=== PATIENT | female | born 1970 | race African-American/Black ===

== ENCOUNTER 2016-11-02 22:13 | Emergency (ER) | payer BC ==
[2016-11-02] MEDS ORDERED: IPRATROPIUM/ALBUTEROL 0.5-2.5 MG/3 ML AMPUL NEB ONE (23:36)
--- NOTE | 2016-11-02 23:45 | ER Document Report ---
ED Medical Screen (RME) - General Chief Complaint: Breathing Difficulty Stated Complaint: DIFFICULTY BREATHING Mode of Arrival: Ambulatory Information source: Patient Notes: Patient is a 46 year old -L[place] female with a history of asthma who presents to the ER today for 2 weeks of increased shortness of breath with wheezing, chills and runny nose. Patient states her albuterol treatments at home and no longer helping. She denies any fever that she knows of. She denies any chest pain. TRAVEL OUTSIDE OF THE [place] IN LAST 30 DAYS: No - Related Data Allergies/Adverse Reactions: No Known Allergies Allergy (Verified 07/28/16 08:02) Past Medical History - General Information source: Patient - Social History Drug Abuse: None Pulmonary Medical History: Reports: Hx Asthma, Hx COPD Renal/ Medical History: Denies: Hx Peritoneal Dialysis Psychiatric Medical History: Denies: Hx Depression Past Surgical History: Reports: Hx Gynecologic Surgery - ablation, Hx Tubal Ligation - Immunizations Hx Diphtheria, Pertussis, Tetanus Vaccination: Yes - unknown Review of Systems - Review of Systems Constitutional: See HPI EENT: See HPI Respiratory: See HPI Physical Exam - Vital signs Vitals: Temp Pulse Resp BP 98.5 F 100 17 110/66 11/02/16 22:40 11/02/16 22:40 11/02/16 22:40 11/02/16 22:40 - Notes Notes: PHYSICAL EXAMINATION: GENERAL: Well-appearing and in no acute distress. LUNGS: Mild expiratory wheezes and lower lung díaz, no rales or rhonchi. Course - Vital Signs Vital signs: Temp Pulse Resp BP Pulse Ox 98.5 F 100 17 110/66 11/02/16 22:40 11/02/16 22:40 11/02/16 22:40 11/02/16 22:40
[2016-11-03] MEDS ORDERED: ALBUTEROL SULFATE 0.083% NEB 2.5 MG/3 ML AMPUL NEB ONE (00:25)
[2016-11-03] MEDS ORDERED: CEFTRIAXONE INJ 1000 MG VIAL IM ONE (00:50)
[2016-11-03] MEDS ORDERED: LIDOCAINE 1% INJ-PF (10 MG/ML) 30 ML SDV INJ ONE (00:50)
[2016-11-03] MEDS ORDERED: AZITHROMYCIN 250 MG TABLET PO ONE (00:50)
[2016-11-03] MEDS ORDERED: GUAIFENESIN/D-METHORPHAN (200-20 MG) SYRUP 10 ML PO ONE (00:50)
[2016-11-03] MEDS ORDERED: PREDNISONE 20 MG TABLET PO ONE (00:50)
--- NOTE | 2016-11-03 00:55 | ER Document Report ---
ED Respiratory Problem - General Chief Complaint: Breathing Difficulty Stated Complaint: DIFFICULTY BREATHING Mode of Arrival: Ambulatory Information source: Patient Notes: Patient is a 46 year old -[place] Islander female with a history of asthma who presents to the ER today for 2 weeks of increased shortness of breath with cough , wheezing, chills and runny nose. Patient states her albuterol treatments at home and no longer helping. She denies any fever that she knows of. She denies any chest pain. TRAVEL OUTSIDE OF THE [place] IN LAST 30 DAYS: No - Related Data Allergies/Adverse Reactions: No Known Allergies Allergy (Verified 07/28/16 08:02) Past Medical History - General Information source: Patient - Social History Smoking Status: Former Smoker Drug Abuse: None Family History: Reviewed & Not Pertinent Patient has suicidal ideation: No Patient has homicidal ideation: No Pulmonary Medical History: Reports: Hx Asthma, Hx COPD Renal/ Medical History: Denies: Hx Peritoneal Dialysis Psychiatric Medical History: Denies: Hx Depression Past Surgical History: Reports: Hx Gynecologic Surgery - ablation, Hx Tubal Ligation - Immunizations Hx Diphtheria, Pertussis, Tetanus Vaccination: Yes - unknown Review of Systems - Review of Systems Constitutional: See HPI EENT: See HPI Cardiovascular: No symptoms reported Respiratory: See HPI Gastrointestinal: No symptoms reported Genitourinary: No symptoms reported Female Genitourinary: No symptoms reported Musculoskeletal: No symptoms reported Skin: No symptoms reported Hematologic/Lymphatic: No symptoms reported Neurological/Psychological: No symptoms reported Physical Exam - Vital signs Vitals: Temp Pulse Resp BP 98.5 F 100 17 110/66 11/02/16 22:40 11/02/16 22:40 11/02/16 22:40 11/02/16 22:40 - Notes Notes: PHYSICAL EXAMINATION: GENERAL: Mildly ill-appearing, but in no acute distress. HEAD: Atraumatic, normocephalic. EYES: Pupils equal round and reactive to light, extraocular movements intact, sclera anicteric, conjunctiva are normal. ENT: ear canals without erythema or foreign body, TMs pearly carson with good bony landmarks, nares with mucoid discharge, oropharynx clear without exudates. Moist mucous membranes. NECK: Normal range of motion, supple without lymphadenopathy LUNGS: Mild expiratory wheezes throughout, rhonchi noted to the left lower lung field, no rales HEART: Regular rate and rhythm without murmurs ABDOMEN: Soft, no tenderness. No guarding, no rebound EXTREMITIES: Normal range of motion, no pitting edema. No cyanosis. NEUROLOGICAL: Cranial nerves grossly intact. Normal sensory/motor exams. PSYCH: Normal mood, normal affect. SKIN: Warm, Dry, normal turgor, no rashes or lesions noted Course - Re-evaluation Re-evalutation: 11/03/16 00:52 Patient states that she feels better after breathing treatment here. Chest x- ray does reveal left basilar airspace disease with small effusion. Patient requested an antibiotic injection, so here she was given azithromycin orally and Rocephin IM, incentive spirometer to use at home every hour while awake, prednisone. Patient to follow-up with her primary care provider and agrees with this plan. - Vital Signs Vital signs: Temp Pulse Resp BP Pulse Ox 98.5 F 100 17 110/66 11/02/16 22:40 11/02/16 22:40 11/02/16 22:40 11/02/16 22:40 Discharge - Discharge Clinical Impression: Pneumonia involving left lung Qualifiers: Pneumonia type: due to unspecified organism Lung location: unspecified part of lung Qualified Code(s): J18.9 - Pneumonia, unspecified organism Asthma Qualifiers: Asthma severity: unspecified severity Asthma complication type: with acute exacerbation Qualified Code(s): J45.901 - Unspecified asthma with (acute) exacerbation Condition: Stable Disposition: HOME, SELF-CARE Instructions: Pneumonia ([facility]) Additional Instructions: Please use the incentive spirometer every hour while you're awake. This will help with the pleural effusion. Please take your medications as prescribed. Return immediately for any new or worsening symptoms. Follow up with primary care provider, call tomorrow to make followup appointment. Prescriptions: Hydrocodone Bit/Homatropine [Hycodan Syrup 5-1.5 mg/5 ml Ud Cup] 5 ml PO Q4HP PRN #120 ml PRN Reason: Azithromycin [Zithromax 250 mg Tablet] 250 mg PO ASDIR PRN #6 tablet PRN Reason: Prednisone 60 mg PO DAILY #21 tablet
[2016-11-03 02:26] VITALS: BP 97/57
== END 2016-11-03 01:24 | disposition home or self-care (01) ==
LOC: ER 22:13
DX: J18.9 Pneumonia, unspecified organism (principal); J45.901 Unspecified asthma with (acute) exacerbation; R06.02 Shortness of breath; R05 Cough; R06.2 Wheezing; R09.89 Other specified symptoms and signs involving the circulatory and respiratory systems; Z87.891 Personal history of nicotine dependence
CPT/HCPCS: 94640; 99284; 96372; 71020; J3490 ×2; J7512; J0696; J7620

== ENCOUNTER 2017-05-28 18:15 | Emergency (ER) | payer SELFPAY ==
[2017-05-28] MEDS ORDERED: IPRATROPIUM/ALBUTEROL 0.5-2.5 MG/3 ML AMPUL NEB ONE (18:54)
[2017-05-28] MEDS ORDERED: MAGNESIUM SULFATE PF/INJ 40 MEQ/10 ML SDV IV ONE (18:57)
--- NOTE | 2017-05-28 19:02 | ER Document Report ---
ED Medical Screen (RME) - General Chief Complaint: Breathing Difficulty Stated Complaint: DIFFICULTY BREATHING Time Seen by Provider: 05/28/17 18:54 Mode of Arrival: Ambulatory Information source: Patient TRAVEL OUTSIDE OF THE [place] IN LAST 30 DAYS: No - HPI Onset: This morning Onset/Duration: Gradual Quality of pain: No pain Associated Symptoms: Cough (productive), Shortness of breath, Other - WHEEZING Exacerbated by: Denies Relieved by: Denies - ALBUTEROL NEB AT HOME NO HELP Similar symptoms previously: Yes - NOT RECENT Recently seen / treated by doctor: No - Related Data Smoking: Non-smoker Frequency of alcohol use: Rare Drug Abuse: None Allergies/Adverse Reactions: No Known Allergies Allergy (Verified 05/28/17 18:49) Past Medical History - General Information source: Patient - Social History Cigarette use (# per day): No Chew tobacco use (# tins/day): No Frequency of alcohol use: None Drug Abuse: None Lives with: Family Family history: Reviewed & Not Pertinent - Past Medical History Cardiac Medical History: Reports: None Pulmonary Medical History: Reports: Hx Asthma, Hx COPD EENT Medical History: Reports: None Neurological Medical History: Reports: None Endocrine Medical History: Reports: None Renal/ Medical History: Reports: None. Denies: Hx Peritoneal Dialysis Malignancy Medical History: Reports: None GI Medical History: Reports: None Musculoskeltal Medical History: Reports None Psychiatric Medical History: Reports: None Denies: Hx Depression Past Surgical History: Reports: Hx Gynecologic Surgery - ablation, Hx Tubal Ligation - Immunizations Hx Diphtheria, Pertussis, Tetanus Vaccination: Yes - unknown Review of Systems - Review of Systems Constitutional: No symptoms reported EENT: No symptoms reported Cardiovascular: No symptoms reported Respiratory: See HPI Gastrointestinal: No symptoms reported Genitourinary: No symptoms reported Musculoskeletal: No symptoms reported Skin: No symptoms reported Neurological/Psychological: No symptoms reported Physical Exam - Vital signs Vitals: Temp Pulse Resp BP Pulse Ox 98.3 F 88 18 133/69 H 93 05/28/17 18:21 05/28/17 18:21 05/28/17 18:21 05/28/17 18:21 05/28/17 18:21 - General General appearance: Appears well, Alert In distress: None - HEENT Eyes: Normal Conjunctiva: Normal Ears: Normal Nasal: Normal Mouth/Lips: Normal Mucous membranes: Normal - Respiratory Respiratory status: No respiratory distress Breath sounds: Wheezing - MODERATE EXPIRATORY, ALL WARNER. No: Rales, Rhonchi, Stridor - Cardiovascular Rhythm: Regular Heart sounds: Normal auscultation Murmur: No - Abdominal Inspection: Normal Distension: No distension - Back Back: Normal - Extremities General upper extremity: Normal inspection General lower extremity: Normal inspection. No: Edema - Neurological Neuro grossly intact: Yes Cognition: Normal Orientation: AAOx4 - Psychological Associated symptoms: Normal affect, Normal mood - Skin Skin Temperature: Warm Skin Moisture: Dry Skin Color: Normal Skin Turgor: Elastic Course - Vital Signs Vital signs: Temp Pulse Resp BP Pulse Ox 98.3 F 88 18 133/69 H 93 05/28/17 18:21 05/28/17 18:21 05/28/17 18:21 05/28/17 18:21 05/28/17 18:21
[2017-05-28 19:28] LABS: ABSOLUTE BASOPHILS # (AUTO) 0.1 10^3/uL (0.0-0.2); ABSOLUTE EOSINOPHILS # (AUTO) 0.4 10^3/uL (0.0-0.6); ABSOLUTE LYMPHOCYTES (AUTO) 1.7 10^3/uL (0.5-4.7); ABSOLUTE MONOCYTES (AUTO) 0.8 10^3/uL (0.1-1.4); ABSOLUTE NEUT (AUTO) 4.7 10^3/uL (1.7-8.2); EOSINOPHILS % (AUTO) 5.5 % (0-6); HEMATOCRIT 40.7 % (36.0-47.0); HGB HCT DIFFERENCE 1.3; LYMPHOCYTES % (AUTO) 22.1 % (13-45); MEAN CORPUSCULAR HEMOGLOBIN 30.8 pg (27.0-33.4); MEAN CORPUSCULAR HGB CONC 34.4 g/dL (32.0-36.0); MEAN CORPUSCULAR VOLUME 90 fl (80-97); MONOCYTES % (AUTO) 10.5 % (3-13); RED BLOOD COUNT 4.54 10^6/uL (3.72-5.28); RED CELL DISTRIBUTION WIDTH 13.2 % (11.5-14.0); SEGMENTED NEUTROPHILS % (AUTO) 60.9 % (42-78); WHITE BLOOD COUNT 7.8 10^3/uL (4.0-10.5)
[2017-05-28 19:44] LABS: ALANINE AMINOTRANSFERASE 26 U/L (9-52); ALBUMIN 4.2 g/dL (3.5-5.0); ALKALINE PHOSPHATASE 82 U/L (38-126); ANION GAP 6 (5-19); ASPARTATE AMINO TRANSFERASE 28 U/L (14-36); BILIRUBIN,DIRECT 0.4 mg/dL (0.0-0.4); BILIRUBIN,TOTAL 0.9 mg/dL (0.2-1.3); BLOOD UREA NITROGEN 11 mg/dL (7-20); CALCIUM 9.8 mg/dL (8.4-10.2); CARBON DIOXIDE 26 mmol/L (22-30); CHLORIDE 105 mmol/L (98-107); CREATININE RESULT 0.72 mg/dL (0.52-1.25); GLUCOSE 84 mg/dL (75-110); POTASSIUM 3.8 mmol/L (3.6-5.0); SODIUM 137.1 mmol/L (137-145); TOTAL PROTEIN 7.7 g/dL (6.3-8.2)
--- NOTE | 2017-05-28 20:02 | RADIOLOGY REPORT (SQ) ---
EXAM DESCRIPTION: CHEST PA/LAT COMPLETED DATE/TIME: 05/28/2017 7:45 pm REASON FOR STUDY: COUGH, WHEEZING COMPARISON: None. EXAM PARAMETERS: NUMBER OF VIEWS: two views TECHNIQUE: Digital Frontal and Lateral radiographic views of the chest acquired. RADIATION DOSE: NA LIMITATIONS: none FINDINGS: LUNGS AND PLEURA: Upper lobes are hyperlucent from obstructive disease. No acute infiltrates. No pleural effusion. No pneumothorax. MEDIASTINUM AND HILAR STRUCTURES: No masses or contour abnormalities. HEART AND VASCULAR STRUCTURES: Heart normal size. No evidence for failure. BONES: No acute findings. HARDWARE: None in the chest. OTHER: No other significant finding. IMPRESSION: Obstructive lung disease. TECHNICAL DOCUMENTATION: JOB ID: [id number] [employer]- All Rights Reserved
[2017-05-28] MEDS ORDERED: ALBUTEROL SULFATE 0.083% NEB 2.5 MG/3 ML AMPUL NEB ONE (20:09)
[2017-05-28] MEDS ORDERED: METHYLPREDNISOLONE INJ 125 MG/2 ML SDV IV ONE (20:10)
--- NOTE | 2017-05-28 20:10 | ER Document Report ---
ED General - General Chief Complaint: Breathing Difficulty Stated Complaint: DIFFICULTY BREATHING Time Seen by Provider: 05/28/17 18:54 Mode of Arrival: Ambulatory Notes: Patient is a 46-year-old female with a past medical history of asthma, prior hospitalizations but no prior intubations, still an active tobacco smoker who presents with several weeks of progressive worsening shortness of breath that became acutely worse today. Patient states she has been using her albuterol inhaler with moderate improvement of her symptoms. She notes that her seasonal allergy symptoms acutely worsen her episodes of shortness of breath. At time of presentation states that a DuoNeb treatment she received in triage has moderately improved her symptoms but she does complain of some ongoing mild dyspnea. Denies any associated chest pain, fever, vomiting or altered mental status. She has not seen her primary care doctor regarding today's concerns. She does not take anything for daily control medication. TRAVEL OUTSIDE OF THE [place] IN LAST 30 DAYS: No - Related Data Allergies/Adverse Reactions: No Known Allergies Allergy (Verified 05/28/17 18:49) Past Medical History - General Information source: Patient - Social History Smoking Status: Current Every Day Smoker Cigarette use (# per day): No Chew tobacco use (# tins/day): No Frequency of alcohol use: None Drug Abuse: None Lives with: Family Family History: Reviewed & Not Pertinent - Past Medical History Cardiac Medical History: Reports: None Pulmonary Medical History: Reports: Hx Asthma, Hx COPD EENT Medical History: Reports: None Neurological Medical History: Reports: None Endocrine Medical History: Reports: None Renal/ Medical History: Reports: None. Denies: Hx Peritoneal Dialysis Malignancy Medical History: Reports: None GI Medical History: Reports: None Musculoskeltal Medical History: Reports None Psychiatric Medical History: Reports: None Denies: Hx Depression Past Surgical History: Reports: Hx Gynecologic Surgery - ablation, Hx Tubal Ligation - Immunizations Hx Diphtheria, Pertussis, Tetanus Vaccination: Yes - unknown Review of Systems - Review of Systems Notes: Constitutional: Negative for fever. HENT: Negative for sore throat. Eyes: Negative for visual changes. Cardiovascular: Negative for chest pain. Respiratory: Positive for shortness of breath. Gastrointestinal: Negative for abdominal pain, vomiting or diarrhea. Genitourinary: Negative for dysuria. Musculoskeletal: Negative for back pain. Skin: Negative for rash. Neurological: Negative for headaches, weakness or numbness. 10 point ROS negative except as marked above and in HPI. Physical Exam - Vital signs Vitals: Temp Pulse Resp BP Pulse Ox 98.3 F 88 18 133/69 H 93 05/28/17 18:21 05/28/17 18:21 05/28/17 18:21 05/28/17 18:21 05/28/17 18:21 Interpretation: Normal Notes: PHYSICAL EXAMINATION: GENERAL: Well-appearing, well-nourished and in no acute distress. HEAD: Atraumatic, normocephalic. EYES: Pupils equal round and reactive to light, extraocular movements intact, sclera anicteric, conjunctiva are normal. ENT: nares patent, oropharynx clear without exudates. Moist mucous membranes. NECK: Normal range of motion, supple without lymphadenopathy LUNGS: Breath sounds clear to auscultation bilaterally and equal. Scattered wheezing in all lung díaz. HEART: Regular rate and rhythm without murmurs ABDOMEN: Soft, nontender, normoactive bowel sounds. No guarding, no rebound. No masses appreciated. EXTREMITIES: Normal range of motion, no pitting or edema. No cyanosis. NEUROLOGICAL: No focal neurological deficits. Moves all extremities spontaneously and on command. PSYCH: Normal mood, normal affect. SKIN: Warm, Dry, normal turgor, no rashes or lesions noted. Course - Re-evaluation Re-evalutation: 05/28/17 20:10 Patient presents with a mild exacerbation of their baseline asthma. Mild wheezing at time of presentation but vitals do not show significant hypoxemia or tachypnea. No retractions. Patient did clinically improve after receiving nebulizers here in the emergency department. Chest x-ray without evidence of an acute pneumonia. Patient able to ambulate without any respiratory distress. Based on patient's overall reassuring assessment, I believe they are stable for outpatient management with steroids. I do not suspect an acute alternative pathology at this time based on history and exam including acute pulmonary embolus, ACS, pneumothorax, or aortic dissection. At this time will discharge with return precautions and follow-up recommendations. Verbal discharge instructions given a the bedside and opportunity for questions given. Medication warnings reviewed. Patient is in agreement with this plan and has verbalized understanding of return precautions and the need for primary care follow-up in the next 24-72 hours. - Vital Signs Vital signs: Temp Pulse Resp BP Pulse Ox 98.3 F 88 22 H 123/68 93 05/28/17 18:21 05/28/17 18:21 05/28/17 22:27 05/28/17 22:27 05/28/17 22:27 - Laboratory Result Diagrams: 05/28/17 19:07 05/28/17 19:07 - Diagnostic Test Radiology reviewed: Image reviewed, Reports reviewed Radiology results interpreted by me: 05/29/17 02:33 Chest x-ray: No acute infiltrate or pneumothorax Discharge - Discharge Clinical Impression: Asthma exacerbation Condition: Good Disposition: HOME, SELF-CARE Additional Instructions: You were seen for an asthma exacerbation. Your symptoms improved with treatment here in the emergency department. However, it is very important that you return to the emergency department immediately if you began to have worsening difficulty breathing that does not respond to your normal home nebulizers. You are also being sent home on a five-day course of steroids that you should start taking tomorrow. Please also follow closely with your primary care physician. you should also return to emergency department if you develop fever greater than 101, persistent cough, persistent vomiting, pass out, or any other symptoms that are concerning to you. Prescriptions: Albuterol Sulfate [Albuterol Sulfate 5mg/1 mL] 5 mg NEB Q4 PRN #50 ml PRN Reason: Prednisone [Deltasone 20 mg Tablet] 3 tab PO DAILY 5 Days tablet Forms: Return to Work
[2017-05-28] MEDS: MAGNESIUM SULFATE/D5W 1 GM/100 ML RTUPB IV SCH ×2 (21:01→22:12)
[2017-05-28] MEDS ORDERED: ALBUTEROL SULFATE HFA (90 MCG/PUFF) 8 GM MDI (1 MDI/ER DISP) IH PRN (21:43)
[2017-05-28 22:39] VITALS: BP 123/68
--- NOTE | 2017-05-29 07:55 | EKG REPORT ---
SEVERITY:- NORMAL ECG - SINUS RHYTHM : Confirmed by: Jesús Mcmillan MD 29-May-2017 07:54:34
== END 2017-05-28 22:39 | disposition home or self-care (01) ==
LOC: ER 18:15
DX: J45.901 Unspecified asthma with (acute) exacerbation (principal); F17.200 Nicotine dependence, unspecified, uncomplicated
CPT/HCPCS: 93005; 94640 ×2; 99285; 96375; 96365; 36415; 85025; 80053; 71020; 93010; J2930; J3475; J3490; J7620

== ENCOUNTER 2017-06-12 22:40 | Emergency (ER) | payer SELFPAY ==
--- NOTE | 2017-06-12 23:53 | ER Document Report ---
ED Extremity Problem, Lower - General Chief Complaint: Ankle Injury Stated Complaint: ANKLE INJURY Time Seen by Provider: 06/12/17 23:47 Mode of Arrival: Ambulatory Information source: Patient TRAVEL OUTSIDE OF THE [place] IN LAST 30 DAYS: No - HPI Patient complains to provider of: Pain, Swelling Location: Foot - LEFT Occurred: This afternoon Where: Work Onset/Duration: Sudden Quality of pain: Sharp Severity: Moderate Context: Other - WAS SITTING DOWN, GOT UP ON FEET QUICKLY, HEARD A "POP" AND FELT IMMEDIATE PAIN Recent injury: Yes Associated symptoms: [place] a pop Exacerbated by: Walking, Other - WEIGHT BEARING Relieved by: Elevation - Related Data Allergies/Adverse Reactions: No Known Allergies Allergy (Verified 05/28/17 18:49) Past Medical History - General Information source: Patient - Social History Smoking Status: Unknown if Ever Smoked Frequency of alcohol use: Occasional Drug Abuse: None Lives with: Spouse/Significant other Family History: Reviewed & Not Pertinent Patient has suicidal ideation: No Patient has homicidal ideation: No - Past Medical History Cardiac Medical History: Reports: None Pulmonary Medical History: Reports: Hx Asthma, Hx COPD Neurological Medical History: Reports: None Endocrine Medical History: Reports: None Renal/ Medical History: Reports: None. Denies: Hx Peritoneal Dialysis Malignancy Medical History: Reports: None GI Medical History: Reports: None Musculoskeltal Medical History: Reports None Psychiatric Medical History: Reports: None Denies: Hx Depression Past Surgical History: Reports: Hx Gynecologic Surgery - ablation, Hx Tubal Ligation - Immunizations Hx Diphtheria, Pertussis, Tetanus Vaccination: Yes - unknown Review of Systems - Review of Systems Constitutional: No symptoms reported EENT: No symptoms reported Cardiovascular: No symptoms reported Respiratory: No symptoms reported Gastrointestinal: No symptoms reported Musculoskeletal: See HPI Skin: No symptoms reported Neurological/Psychological: No symptoms reported Physical Exam - Vital signs Vitals: Temp Pulse Resp BP Pulse Ox 98.2 F 96 16 130/74 H 94 06/12/17 23:14 06/12/17 23:14 06/12/17 23:14 06/12/17 23:14 06/12/17 23:14 Interpretation: Normal - General General appearance: Appears well, Alert In distress: None - HEENT Head: Normocephalic Eyes: Normal Conjunctiva: Normal Ears: Normal Nasal: Normal Mouth/Lips: Normal Mucous membranes: Normal - Respiratory Respiratory status: No respiratory distress - Cardiovascular Rhythm: Regular - Extremities General upper extremity: Normal inspection General lower extremity: No: Normal inspection - L. FOOT (SEE BELOW) Foot: Tender - OVER ANT. TALO-FIB LIGAMENT, Edema - OVER ANT. TALO-FIB. LIGAMENT - Neurological Neuro grossly intact: Yes - Psychological Associated symptoms: Normal affect, Normal mood - Skin Skin Temperature: Warm Skin Moisture: Dry Skin Color: Normal Skin Turgor: Elastic Course - Vital Signs Vital signs: Temp Pulse Resp BP Pulse Ox 98.2 F 96 16 130/74 H 94 06/12/17 23:14 06/12/17 23:14 06/12/17 23:14 06/12/17 23:14 06/12/17 23:14 Discharge - Discharge Clinical Impression: Left ankle sprain Qualifiers: Encounter type: initial encounter Involved ligament of ankle: tibiofibular ligament Qualified Code(s): S93.432A - Sprain of tibiofibular ligament of left ankle, initial encounter Condition: Stable Disposition: HOME, SELF-CARE Instructions: Use of Crutches ([facility]), Ice & Elevation ([facility]), Sprained Ankle ([facility] ), Soft Ankle Splint ([facility]) Additional Instructions: KEEP SPLINT ON EXCEPT WHEN BATHING. AVOID WEIGHT BEARING FOR NEXT 48 HOURS, THEN BEGIN WEIGHT BEARING TOLERATED. YOU MAY TAKE TYLENOL OR IBUPROFEN IF NEEDED FOR PAIN. FOLLOW UP WITH ORTHOPEDIC SURGEON OR KICK PRESS OPERATOR IF NOT ABLE TO BEAR WEIGHT TUESDAY, Jun.14. RETURN TO E.R. IF PROBLEMS. Referrals: ABDIFATAH CANAS MD [ACTIVE STAFF] - Follow up as needed HÉCTOR MURPHY DPM [ACTIVE STAFF] - Follow up as needed
--- NOTE | 2017-06-13 00:48 | RADIOLOGY REPORT (SQ) ---
EXAM DESCRIPTION: ANKLE LEFT COMPLETE COMPLETED DATE/TIME: 06/13/2017 12:23 am REASON FOR STUDY: Left ankle pain status post fall. COMPARISON: None. NUMBER OF VIEWS: Three views. TECHNIQUE: AP, lateral, and oblique radiographic images acquired of the left ankle. LIMITATIONS: None. FINDINGS: MINERALIZATION: Normal. BONES: No acute fracture or dislocation. No worrisome bone lesions. Bony spurs are seen at the calc aneus. JOINTS: No effusion. SOFT TISSUES: No soft tissue swelling. No radiopaque foreign body. IMPRESSION: No radiographic evidence of acute injury. TECHNICAL DOCUMENTATION: JOB ID: [id number] [employer]- All Rights Reserved
[2017-06-13 02:09] VITALS: BP 126/72
== END 2017-06-13 01:30 | disposition home or self-care (01) ==
LOC: ER 22:40
DX: S93.432A Sprain of tibiofibular ligament of left ankle, initial encounter (principal); X58.XXXA Exposure to other specified factors, initial encounter; Y93.89 Activity, other specified; Y99.0 Civilian activity done for income or pay; J44.9 Chronic obstructive pulmonary disease, unspecified
CPT/HCPCS: 99283; 73610; L1902

== ENCOUNTER 2017-12-28 06:15 | Emergency (ER) | payer BC ==
[2017-12-28] MEDS ORDERED: IPRATROPIUM/ALBUTEROL 0.5-2.5 MG/3 ML AMPUL NEB ONE ×3 (06:24→06:39)
[2017-12-28] MEDS ORDERED: PREDNISONE 20 MG TABLET PO ONE (06:26)
--- NOTE | 2017-12-28 06:55 | ER Document Report ---
ED Respiratory Problem - General Chief Complaint: Breathing Difficulty Stated Complaint: TROUBLE BREATHING Time Seen by Provider: 12/28/17 06:25 Notes: The patient 47-year-old female, past medical history asthma, seasonal allergies , current smoker, presents with increased wheezing and shortness of breath over the past 3 days. Last asthma attack was 8 months ago. She tried Benadryl and Robitussin without much relief of her symptoms. She thinks that pollen causes worsening of her asthma. She denies chest pain, fevers, hemoptysis, leg swelling, nausea, vomiting, cough, difficulty swallowing or abdominal pain. TRAVEL OUTSIDE OF THE [place] IN LAST 30 DAYS: No - Related Data Allergies/Adverse Reactions: No Known Allergies Allergy (Verified 05/28/17 18:49) Past Medical History - General Information source: Patient - Social History Smoking Status: Current Every Day Smoker Family History: Reviewed & Not Pertinent Pulmonary Medical History: Reports: Hx Asthma, Hx COPD Renal/ Medical History: Denies: Hx Peritoneal Dialysis Psychiatric Medical History: Denies: Hx Depression Past Surgical History: Reports: Hx Gynecologic Surgery - ablation, Hx Tubal Ligation - Immunizations Hx Diphtheria, Pertussis, Tetanus Vaccination: Yes - unknown Review of Systems - Review of Systems Notes: REVIEW OF SYSTEMS: CONSTITUTIONAL: -fevers, -chills EENT: -eye pain, -difficulty swallowing, -nasal congestion CARDIOVASCULAR: -chest pain, -syncope. RESPIRATORY: -cough, +SOB GASTROINTESTINAL: -abdominal pain, -nausea, -vomiting, -diarrhea GENITOURINARY: -dysuria, -hematuria MUSCULOSKELETAL: -back pain, -neck pain SKIN: -rash or skin lesions. HEMATOLOGIC: -easy bruising or bleeding. LYMPHATIC: -swollen, enlarged glands. NEUROLOGICAL: -altered mental status or loss of consciousness, -headache, - neurologic symptoms PSYCHIATRIC: -anxiety, -depression. ALL OTHER SYSTEMS REVIEWED AND NEGATIVE. Physical Exam - Vital signs Vitals: Temp Pulse Resp BP Pulse Ox 98.5 F 91 22 H 123/74 89 L 12/28/17 06:20 12/28/17 06:20 12/28/17 06:20 12/28/17 06:20 12/28/17 06:20 - Notes Notes: PHYSICAL EXAMINATION: GENERAL: Well-appearing, well-nourished and in no acute distress. HEAD: Atraumatic, normocephalic. EYES: Pupils equal round and reactive to light, extraocular movements intact, sclera anicteric, conjunctiva are normal. ENT: nares patent, oropharynx clear without exudates. Moist mucous membranes. NECK: Normal range of motion, supple without lymphadenopathy LUNGS: No respiratory distress. Speaking in full sentences. Coarse breath sounds with end-expiratory wheezing. HEART: Regular rate and rhythm without murmurs ABDOMEN: Soft, nontender, normoactive bowel sounds. No guarding, no rebound. No masses appreciated. EXTREMITIES: Normal range of motion, no pitting or edema. No cyanosis. No calf tenderness or swelling. NEUROLOGICAL: Cranial nerves grossly intact. Normal speech, normal gait. Normal sensory and motor exams. PSYCH: Normal mood, normal affect. SKIN: Warm, Dry, normal turgor, no rashes or lesions noted. Course - Re-evaluation Re-evalutation: Patient appears well and is in no acute distress. Her wheezing completely resolved after 3 duonebs and steroids and she feels much better. Patient has a history of COPD and asthma and her oxygen sats never dropped below 89%. No fevers, productive cough or crackles on exam to suggest a pneumonia. No risk factors for PE at this time either. Instructed patient about continuing the prednisone, refilled her albuterol, talked to her about smoking cessation and provided her with Zyrtec and Flonase to help with her allergic rhinitis symptoms. Given very strict return precautions and she understands. - Vital Signs Vital signs: Temp Pulse Resp BP Pulse Ox 98.5 F 91 22 H 123/74 89 L 12/28/17 06:20 12/28/17 06:20 12/28/17 06:20 12/28/17 06:20 12/28/17 06:20 Discharge - Discharge Clinical Impression: Status asthmaticus with COPD (chronic obstructive pulmonary disease) Condition: Stable Disposition: HOME, SELF-CARE Additional Instructions: BRONCHITIS WITH BRONCHOSPASM (WHEEZING): You have bronchitis with bronchospasm (wheezing). Sometimes people develop wheezing with a chest cold. This occurs either because of an underlying tendency toward asthma or because the virus itself irritates the bronchial tubes. This irritation causes cough, shortness of breath, and wheezing. Emergency treatment of bronchospasm may include adrenaline shots or bronchodilator aerosol. You may feel lightheaded and have a rapid pulse for an hour or two. Rest and get plenty of fluids. At home, we'll treat you with a bronchodilator inhaler. Corticosteroids may be required for some patients. Until you recover, avoid chemical fumes, dusts, pollens, and exercising in very cold or dry air. If you smoke, stop now! Most cases of bronchitis get better without antibiotics. We prescribe antibiotics when we believe bacteria are damaging your airways, or if there's high risk the bronchitis will worsen into pneumonia. Increase your fluid intake. A cool mist humidifier may make your lungs more comfortable. An expectorant (cough medicine that loosens phlegm) can help. Repeated episodes of bronchitis and bronchospasm may result in lung damage -- for example, chronic bronchitis, recurrent pneumonias, or emphysema. If you develop a fever, increased wheezing, chest pain, or severe shortness of breath, you should contact the doctor immediately. INHALED BRONCHODILATORS: You have received a treatment of and/or prescription for an inhaled bronchodilator -- a medication which stimulates the airways in the lung to dilate. This improves the flow of air in asthma, bronchitis, and emphysema. These medicines have some similarity to adrenaline, and can cause similar side effects: shakiness, racing heart, and a sense of nervousness. These side effects decrease with time. Contact your doctor if these side effects are severe. Do not over-use the medicine. Too-frequent use of the inhaler may make it ineffective. Call your doctor if the inhaler is not controlling your symptoms at the prescribed doses. STEROID MEDICATION: You have been given an injection of or oral medicine of the cortisone/ steroid class. This medication is used to control inflammation or allergy. Alfred t is usually only given for a short period of time, until the acute process subsides. There are usually no side effects from short-term use of cortisone-like medications. Some persons feel an increased sense of well-being and are not sleepy at bedtime. Long-term use of cortisone medications is best avoided, unless required for a severe condition. If your condition does not remit, or relapses after the course of corticosteroid medication, you should consult your physician. USE OF ACETAMINOPHEN (Tylenol): Acetaminophen may be taken for pain relief or fever control. It's much safer than aspirin, offering a wider range of "safe" dosages. It is safe during . Some brand names are Tylenol, Panadol, Datril, Anacin 3, Tempra, and Liquiprin. Acetaminophen can be repeated every four hours. The following are maximum recommended dosages: >89 pounds or adults 650 mg to 900 mg Acetaminophen can be repeated every four hours. Maximum dose not to exceed 4000 mg a day. SMOKING: If you smoke, you should stop smoking. The tar and chemicals in cigarette smoke are harmful. Smoking has been shown to cause: emphysema chronic bronchitis lung cancer mouth and throat cancer stomach and pancreas cancer premature aging defects In addition, smoking increases ear and lung infections in children of smokers. FOLLOW-UP CARE: If you have been referred to a physician for follow-up care, call the physician s office for an appointment as you were instructed or within the next two days. If you experience worsening or a significant change in your symptoms, notify the physician immediately or return to the Emergency Department at any time for re-evaluation. Prescriptions: Albuterol Sulfate [Albuterol Sulfate 2.5mg/3 mL] 1 vial IH Q4 PRN #30 vial PRN Reason: Cetirizine HCl [Zyrtec] 10 mg PO DAILY PRN 30 Days capsule PRN Reason: Fluticasone Propionate [Flonase Nasal [place] 50 Mcg/[place] 16 gm] 1 spray NASL Q12 #1 inhaler Prednisone [Deltasone 20 mg Tablet] 3 tab PO DAILY 4 Days tablet Forms: Smoking Cessation Education, Elevated Blood Pressure Referrals: ELAN THAKUR MD [ACTIVE STAFF] - Follow up as needed
[2017-12-28 07:40] VITALS: BP 112/58
== END 2017-12-28 07:45 | disposition home or self-care (01) ==
LOC: ER 06:15
DX: J45.902 Unspecified asthma with status asthmaticus (principal); J44.9 Chronic obstructive pulmonary disease, unspecified; F17.200 Nicotine dependence, unspecified, uncomplicated
CPT/HCPCS: 94640 ×2; 99284; J7512; J7620

== ENCOUNTER 2018-01-20 06:09 | Emergency (ER) | payer BC ==
[2018-01-20] MEDS ORDERED: IPRATROPIUM/ALBUTEROL 0.5-2.5 MG/3 ML AMPUL NEB ONE ×3 (06:25→06:26)
[2018-01-20] MEDS ORDERED: PREDNISONE 20 MG TABLET ONE (06:26)
--- NOTE | 2018-01-20 06:36 | ER Document Report ---
ED Medical Screen (RME) - General Chief Complaint: Shortness Of Breath Stated Complaint: SHORTNESS OF BREATH Time Seen by Provider: 01/20/18 06:21 Mode of Arrival: Ambulatory Information source: Patient Notes: 47 yr old female hx of asthma presents with complaints of asthma exacerbation. Pt notes she was seen 2 weeks ago, has been feeling the same since pt refuses ot answer questions, but able to speak in full sentences with no distress. pt becomes agitated, yelling, stating "you cant brainwash me" I explained I am trying to take care of her, but I need to know what is wrong. She repeatedly yells you cant brain wash me, and that theres fluid in my lungs. I asked patient 3x calmly not to raise her voice at me as I am trying to help her, she continues to yell in no distress. Pt requests different provider, I will rme and allow oncoming midlevel to see the patient. I have greeted and performed a rapid initial assessment of this patient. A comprehensive ED assessment and evaluation of the patient, analysis of test results and completion of the medical decision making process will be conducted by additional ED providers. PHYSICAL EXAMINATION: GENERAL: Well-appearing, well-nourished and in no acute distress. HEAD: Atraumatic, normocephalic. EYES: Pupils equal round extraocular movements intact, conjunctiva are normal. ENT: Nares patent NECK: Normal range of motion LUNGS: inspratory and expiratroy wheezing in no distress, no retractions. speaking full sentences. Musculoskeletal: Normal range of motion NEUROLOGICAL: Normal speech, normal gait. PSYCH: agitated SKIN: Warm, Dry, normal turgor, no rashes or lesions noted. TRAVEL OUTSIDE OF THE [place] IN LAST 30 DAYS: No - Related Data Allergies/Adverse Reactions: No Known Allergies Allergy (Verified 05/28/17 18:49) Past Medical History - Social History Family history: Reviewed & Not Pertinent Pulmonary Medical History: Reports: Hx Asthma, Hx COPD Renal/ Medical History: Denies: Hx Peritoneal Dialysis Psychiatric Medical History: Denies: Hx Depression Past Surgical History: Reports: Hx Gynecologic Surgery - ablation, Hx Tubal Ligation - Immunizations Hx Diphtheria, Pertussis, Tetanus Vaccination: Yes - unknown Physical Exam - Vital signs Vitals: Temp Pulse Resp BP Pulse Ox 98.5 F 100 28 H 103/74 93 01/20/18 06:13 01/20/18 06:13 01/20/18 06:13 01/20/18 06:13 01/20/18 06:13 Course - Vital Signs Vital signs: Temp Pulse Resp BP Pulse Ox 98.5 F 100 28 H 103/74 93 01/20/18 06:13 01/20/18 06:13 01/20/18 06:13 01/20/18 06:13 01/20/18 06:13
[2018-01-20 06:45] LABS: ABSOLUTE BASOPHILS # (AUTO) 0.1 10^3/uL (0.0-0.2); ABSOLUTE EOSINOPHILS # (AUTO) 0.5 10^3/uL (0.0-0.6); ABSOLUTE LYMPHOCYTES (AUTO) 3.3 10^3/uL (0.5-4.7); ABSOLUTE NEUT (AUTO) 4.2 10^3/uL (1.7-8.2); BASOPHILS % (AUTO) 0.9 % (0-2); EOSINOPHILS % (AUTO) 5.5 % (0-6); HEMATOCRIT 39.4 % (36.0-47.0); HEMOGLOBIN 13.5 g/dL (12.0-15.5); LYMPHOCYTES % (AUTO) 36.5 % (13-45); MEAN CORPUSCULAR HEMOGLOBIN 30.9 pg (27.0-33.4); MEAN CORPUSCULAR HGB CONC 34.2 g/dL (32.0-36.0); MEAN CORPUSCULAR VOLUME 91 fl (80-97); MONOCYTES % (AUTO) 10.8 % (3-13); PLATELET COUNT 216 10^3/uL (150-450); RED BLOOD COUNT 4.35 10^6/uL (3.72-5.28); SEGMENTED NEUTROPHILS % (AUTO) 46.3 % (42-78); TOTAL CELLS COUNTED % (AUTO) 100 %; WHITE BLOOD COUNT 9.1 10^3/uL (4.0-10.5)
[2018-01-20] MEDS ORDERED: PREDNISONE 20 MG TABLET PO ONE (06:51)
--- NOTE | 2018-01-20 06:51 | RADIOLOGY REPORT (SQ) ---
EXAM DESCRIPTION: CHEST SINGLE VIEW CLINICAL HISTORY: 47 years Female, resp distress COMPARISON: 8.19.17 NUMBER OF VIEWS/TECHNIQUE: 1/AP LIMITATIONS: None. FINDINGS: Normal lung volume, clear parenchyma, normal cardiac silhouette, atherosclerosis, and intact bony thorax. IMPRESSION: No acute cardiopulmonary findings.
[2018-01-20 06:59] LABS: ALANINE AMINOTRANSFERASE 30 U/L (9-52); ALBUMIN 3.9 g/dL (3.5-5.0); ALKALINE PHOSPHATASE 76 U/L (38-126); ANION GAP 11 (5-19); ASPARTATE AMINO TRANSFERASE 16 U/L (14-36); BILIRUBIN,DIRECT 0.1 mg/dL (0.0-0.4); BILIRUBIN,TOTAL 0.4 mg/dL (0.2-1.3); BLOOD UREA NITROGEN 15 mg/dL (7-20); CALCIUM 9.2 mg/dL (8.4-10.2); CARBON DIOXIDE 23 mmol/L (22-30); CHLORIDE 110 mmol/L (98-107); CREATINE KINASE 165 U/L (30-135); GLUCOSE 116 mg/dL (75-110); POTASSIUM 4.1 mmol/L (3.6-5.0); SODIUM 144.4 mmol/L (137-145); TOTAL PROTEIN 6.5 g/dL (6.3-8.2)
[2018-01-20 07:11] LABS: CREATINE KINASE MB 0.62 ng/mL (<4.55); NT PRO BNP 17 pg/mL (<125)
[2018-01-20 07:12] LABS: TROPONIN I < 0.012 ng/mL
--- NOTE | 2018-01-20 07:43 | ER Document Report ---
ED Respiratory Problem - General Chief Complaint: Shortness Of Breath Stated Complaint: SHORTNESS OF BREATH Time Seen by Provider: 01/20/18 06:21 Mode of Arrival: Ambulatory Information source: Patient TRAVEL OUTSIDE OF THE [place] IN LAST 30 DAYS: No - HPI Patient complains to provider of: Short of breath Notes: Patient is here with complaints of cough, wheezing, shortness of breath. The patient has a history of asthma. Patient is also a smoker. Patient denies having any chest pain. States that she has been coughing for about a week, but last night is when she noticed that she was feeling more short of breath. She denies any nausea, vomiting, diarrhea. She denies any leg pain or leg swelling. She denies any recent long trips or surgeries, cancer, hormones, history of DVT or PE. She has not had any chest pain during this episode. She denies any history of hypertension, high cholesterol, diabetes, CAD. She denies any drug use. She denies any rash. She denies any abdominal pain. No headache, blurred vision, numbness, tingling, weakness. - Related Data Allergies/Adverse Reactions: No Known Allergies Allergy (Verified 05/28/17 18:49) Past Medical History - General Information source: Patient - Social History Smoking Status: Current Every Day Smoker Chew tobacco use (# tins/day): No Frequency of alcohol use: None Drug Abuse: None Family History: Reviewed & Not Pertinent Patient has suicidal ideation: No Patient has homicidal ideation: No Pulmonary Medical History: Reports: Hx Asthma, Hx COPD Renal/ Medical History: Denies: Hx Peritoneal Dialysis Psychiatric Medical History: Denies: Hx Depression Past Surgical History: Reports: Hx Gynecologic Surgery - ablation, Hx Tubal Ligation - Immunizations Hx Diphtheria, Pertussis, Tetanus Vaccination: Yes - unknown Review of Systems - Review of Systems -: Yes All other systems reviewed and negative Physical Exam - Vital signs Vitals: Temp Pulse Resp BP Pulse Ox 98.5 F 100 28 H 103/74 93 01/20/18 06:13 01/20/18 06:13 01/20/18 06:13 01/20/18 06:13 01/20/18 06:13 - Notes Notes: GENERAL: alert, cooperative, nontoxic, no distress. HEAD: normocephalic, atraumatic EYES: conjunctiva pink without discharge, no external redness or swelling. EARS: no external swelling, no external redness NOSE: atraumatic, no external swelling MOUTH/THROAT: mucous membranes moist and pink, posterior pharynx without erythema, swelling, exudate. No trismus or drooling. NECK: soft, supple, full range of motion, no meningismus. CHEST: No respiratory distress. No increased work of breathing. No nasal flaring. She is noted to have some expiratory wheezing throughout but with good air movement. No crackles. CARDIAC: regular rate and rhythm, no murmur, normal capillary refill, normal pulses. No peripheral edema noted. ABDOMEN: Soft, nontender. BACK: full range of motion, no CVA tenderness. EXTREMITIES: full range of motion of all extremities. No redness, no swelling. NEURO: alert and oriented x 3, no focal deficits, full range of motion of all extremities. PYSCH: appropriate mood, affect. Patient is cooperative. SKIN: pink, warm, dry, no rash. Course - Re-evaluation Re-evalutation: 01/20/18 07:46 Patient is nontoxic appearing with stable vitals at this time. Patient has a history of asthma. She does continue to smoke. I did have a discussion with the patient regarding her need to stop smoking. She arrives here feeling short of breath with some wheezing. After prednisone and breathing treatments, she states that she is feeling significantly better. She satting 95% on room air. She was ambulated around the emergency department and continued to have an O2 saturation of 94-95%. Heart rate remains less than 100. She is not significantly tachypneic. Patient has had no chest pain with any of this. She has a heart score of 2. Negative troponin as well as EKG. Symptoms are most likely secondary to asthma exacerbation. Her symptoms are very atypical of ACS. Patient has no pulmonary embolism risk factors, she has no exam findings consistent with PE, and her exam is consistent with asthma exacerbation. No pneumonia seen on chest x-ray. Patient reports that she is feeling significantly better at this time. We discussed possible admission to the hospital, but the patient declines and states that she does feel well enough to go home at this time. This point the patient will be discharged home with prescription for prednisone. She is requesting a inhaled steroid, therefore I will prescribe her a long-acting bronchodilator steroid combination that she can take daily to help keep her asthma under control. She will also be given a rescue inhaler of albuterol to be used as needed. She will be instructed to follow-up with her primary care doctor at the next available appointment for reevaluation, but instructed to return the emergency department immediately if she develops worsening shortness of breath, any chest pain, high fevers, or has any further concerns at all. The patient's emergency department workup and current diagnosis were explained to the patient and or family. Follow-up instructions were provided. Medications if prescribed were discussed. Instructions for when to return to the emergency department including specific worrisome symptoms were discussed with the patient and/or family. - Vital Signs Vital signs: Temp Pulse Resp BP Pulse Ox 98.5 F 100 28 H 103/74 94 01/20/18 06:13 01/20/18 06:13 01/20/18 06:13 01/20/18 06:13 01/20/18 06:49 - Laboratory Result Diagrams: 01/20/18 06:30 01/20/18 06:30 Laboratory results interpreted by me: 01/20/18 06:30 Chloride 110 H Glucose 116 H Creatine Kinase 165 H - Diagnostic Test Radiology reviewed: Image reviewed, Reports reviewed - Negative chest x-ray - EKG Interpretation by Ct EKG shows normal: Sinus rhythm, [place], Intervals, QRS Complexes, ST-T Waves Rate: Normal Discharge - Discharge Clinical Impression: Asthma exacerbation Qualifiers: Asthma severity: moderate Asthma persistence: unspecified Qualified Code(s): J45.901 - Unspecified asthma with (acute) exacerbation Condition: Stable Disposition: HOME, SELF-CARE Instructions: Asthma ([facility]), Stop Smoking ([facility]), Family Physicians / Practices Additional Instructions: Take medications as prescribed. Try to stop smoking. Follow-up with your primary care doctor at the next available appointment for reevaluation. Please return to the emergency department if you develop any worsening symptoms including chest pain, difficulty breathing, high fever, or for any further concerns at all. Prescriptions: Albuterol Sulfate [Proair HFA Inhalation Aerosol 8.5 gm MDI] 2 puff IH Q4H PRN # 1 mdi PRN Reason: Budesonide/Formoterol Fumarate [Symbicort Hfa 80-4.5 Mcg Inhaler 6.9 gm] 2 puff IH BID #1 inhaler Prednisone [Deltasone 20 mg Tablet] 3 tab PO DAILY 5 Days tablet Forms: Smoking Cessation Education Referrals: [facility] [Provider Group] - Follow up as needed
--- NOTE | 2018-01-20 07:53 | EKG REPORT ---
SEVERITY:- BORDERLINE ECG - SINUS RHYTHM NONSPECIFIC ST-T CHANGES- INFERIOR LEADS : Confirmed by: Jesús Mcmillan MD 20-Jan-2018 07:51:57
[2018-01-20 08:07] VITALS: BP 108/77
== END 2018-01-20 08:09 | disposition home or self-care (01) ==
LOC: ER 06:09
DX: J44.9 Chronic obstructive pulmonary disease, unspecified (principal); R06.02 Shortness of breath; R05 Cough; F17.200 Nicotine dependence, unspecified, uncomplicated
CPT/HCPCS: 93005; 94640; 99285; 36415; 87040; 82553; 82550; 85025; 80053; 84484; 83880; 71045; 93010; J7512; J7620

== ENCOUNTER 2018-03-26 08:29 | Emergency (ER) | payer BC ==
[2018-03-26] MEDS ORDERED: IPRATROPIUM/ALBUTEROL 0.5-2.5 MG/3 ML AMPUL NEB ONE ×2 (08:43→11:28)
[2018-03-26] MEDS ORDERED: ALBUTEROL SULFATE 0.083% NEB 2.5 MG/3 ML AMPUL NEB ONE ×2 (08:44→09:57)
[2018-03-26] MEDS ORDERED: PREDNISONE 20 MG TABLET PO ONE (09:57)
--- NOTE | 2018-03-26 09:59 | ER Document Report ---
ED Respiratory Problem - General Chief Complaint: Asthma Exacerbation Stated Complaint: DIFFICULTY BREATHING Time Seen by Provider: 03/26/18 09:46 Mode of Arrival: Ambulatory Information source: Patient Notes: Patient presents complaining of asthma exacerbation. Patient states that she ran out of her asthma medications at home recently. Patient denies any fever. Patient does complain of productive cough. Patient does acknowledge smoking a pack per day. Patient states she has been told she has COPD although her primary doctor has never diagnosed her with this. TRAVEL OUTSIDE OF THE [place] IN LAST 30 DAYS: No - HPI Patient complains to provider of: Asthma, Cough Onset: Other - 2 weeks Duration: Continuous Initiating Event: Out of meds Quality of pain: No pain Context: Hx asthma, Hx COPD, Smoker. denies: Recent immobilization, Recent surgery Cough: Productive Sputum amount: Small Sputum color: White Associated symptoms: Cough, Wheezing. denies: Congestion, Headache, Sore Throat - Related Data Allergies/Adverse Reactions: No Known Allergies Allergy (Verified 03/26/18 08:30) Home Medications: albuterol, symbicort, proair. Past Medical History - General Information source: Patient - Social History Smoking Status: Current Every Day Smoker Chew tobacco use (# tins/day): No Frequency of alcohol use: None Drug Abuse: None Occupation: [employer] Family History: Reviewed & Not Pertinent Patient has suicidal ideation: No Patient has homicidal ideation: No Pulmonary Medical History: Reports: Hx Asthma, Hx COPD Renal/ Medical History: Denies: Hx Peritoneal Dialysis Psychiatric Medical History: Denies: Hx Depression Past Surgical History: Reports: Hx Gynecologic Surgery - ablation, Hx Tubal Ligation - Immunizations Hx Diphtheria, Pertussis, Tetanus Vaccination: Yes - unknown Review of Systems - Review of Systems Constitutional: No symptoms reported. denies: Fever, Recent illness EENT: No symptoms reported Cardiovascular: No symptoms reported. denies: Chest pain Respiratory: Cough, Sputum, Wheezing Gastrointestinal: No symptoms reported. denies: Nausea, Vomiting Genitourinary: No symptoms reported Female Genitourinary: No symptoms reported Musculoskeletal: No symptoms reported Skin: No symptoms reported Hematologic/Lymphatic: No symptoms reported Neurological/Psychological: No symptoms reported. denies: Headaches Physical Exam - Vital signs Vitals: Temp Pulse Resp BP Pulse Ox 98.4 F 91 28 H 128/72 H 90 L 03/26/18 08:33 03/26/18 08:33 03/26/18 08:33 03/26/18 08:33 03/26/18 08:33 - General General appearance: Appears well, Alert In distress: None - HEENT Head: Normocephalic, Atraumatic Eyes: Normal Conjunctiva: Normal Nasal: Normal Mouth/Lips: Normal Mucous membranes: Normal Neck: Normal, Supple. No: Subcutaneous emphysema - Respiratory Respiratory status: No respiratory distress Chest status: Nontender Breath sounds: Nonproductive cough, Wheezing Chest palpation: Normal - Cardiovascular Rhythm: Regular Heart sounds: S1 appreciated, S2 appreciated Murmur: No - Back Back: Normal, Nontender - Extremities General upper extremity: Normal inspection, Normal ROM General lower extremity: Normal inspection, Normal ROM - Neurological Neuro grossly intact: Yes Cognition: Normal [place] Coma Scale Eye Opening: Spontaneous [place] Coma Scale Verbal: Oriented [place] Coma Scale Motor: Obeys Commands [place] Coma Scale Total: 15 - Psychological Associated symptoms: Normal affect, Normal mood - Skin Skin Temperature: Warm Skin Moisture: Dry Skin Color: Normal Course - Re-evaluation Re-evalutation: 03/26/18 11:28 Patient ambulated in the hallway, heart rate up to 100 from 80 and oxygen saturation maintains at 90%. Patient returned to room, heart rate returned to 80 with oxygen saturation 90%. The patient does state she has occasionally had paperwork stating she had COPD, although patient denies her doctor ever formally telling her that she had this. Patient states that when she has had similar episodes like this in the past that she has required antibiotics to help improve her symptoms. Patient is insistent that she needs to be discharged today that she has to go to work later this afternoon. Patient states that if she is worse she will return for further evaluation. Patient without any tachypnea or increased respiratory effort. Patient able to speak full complete sentences without any dyspnea. 03/26/18 11:[address] Teresa regarding patient presentation and patient's request to be discharged home. Discussed patient's vital signs. Reviewed patient's vital signs from previous ER stays in admissions. Recommends treating with steroids and inhaled bronchodilators. - Vital Signs Vital signs: Temp Pulse Resp BP Pulse Ox 98.5 F 91 20 132/85 H 92 03/26/18 12:00 03/26/18 12:00 03/26/18 12:00 03/26/18 12:00 03/26/18 12:00 - Diagnostic Test Radiology reviewed: Reports reviewed Discharge - Discharge Clinical Impression: COPD exacerbation Asthma Qualifiers: Asthma severity: unspecified severity Asthma persistence: unspecified Asthma complication type: unspecified Qualified Code(s): J45.909 - Unspecified asthma, uncomplicated Condition: Stable Disposition: HOME, SELF-CARE Instructions: Asthma ([facility]), Chronic Obstructive Lung Disease ([facility]), Doxycycline ([facility]), Inhaled Bronchodilators ([facility]), Stop Smoking ([facility]), Steroid Medication Additional Instructions: Return immediately for any new or worsening symptoms Followup with your primary care provider, call tomorrow to make a followup appointment It is important that you stop smoking Prescriptions: Albuterol Sulfate [Ventolin Hfa] 2 puff IH Q4HP PRN #17 gm PRN Reason: Albuterol Sulfate [Ventolin 0.083% Neb 2.5 mg/3 ml Ampul] 1 vial NEB Q4 PRN #25 vial PRN Reason: Doxycycline Hyclate 100 mg PO BID #20 capsule Prednisone [Deltasone 20 mg Tablet] 3 tab PO DAILY 4 Days tablet Forms: Smoking Cessation Education Referrals: NARGIS LOGAN MD [ACTIVE STAFF] - Follow up tomorrow
--- NOTE | 2018-03-26 10:26 | RADIOLOGY REPORT (SQ) ---
EXAM DESCRIPTION: CHEST 2 VIEWS COMPLETED DATE/TIME: 03/26/2018 10:14 am REASON FOR STUDY: cough COMPARISON: Chest films 01/20/2018, 05/28/2017 EXAM PARAMETERS: NUMBER OF VIEWS: two views TECHNIQUE: Digital Frontal and Lateral radiographic views of the chest acquired. RADIATION DOSE: NA LIMITATIONS: none FINDINGS: LUNGS AND PLEURA: No opacities, masses or pneumothorax. No pleural effusion. MEDIASTINUM AND HILAR STRUCTURES: No masses or contour abnormalities. HEART AND VASCULAR STRUCTURES: Heart normal size. No evidence for failure. BONES: No acute findings. HARDWARE: None in the chest. OTHER: No other significant finding. IMPRESSION: NO ACUTE RADIOGRAPHIC FINDING IN THE CHEST. TECHNICAL DOCUMENTATION: JOB ID: [id number] [employer]- All Rights Reserved Reading location - IP/workstation name: [email or web address]
[2018-03-26] MEDS ORDERED: DOXYCYCLINE HYCLATE 100 MG TABLET PO ONE (11:28)
[2018-03-26 12:30] VITALS: BP 132/85
== END 2018-03-26 12:30 | disposition home or self-care (01) ==
LOC: ER 08:29
DX: J44.1 Chronic obstructive pulmonary disease with (acute) exacerbation (principal); J45.909 Unspecified asthma, uncomplicated; F17.200 Nicotine dependence, unspecified, uncomplicated; Z98.51 Tubal ligation status
CPT/HCPCS: 94640 ×2; 99285; 71046; J7512; J7620

== ENCOUNTER 2018-05-15 15:27 | Emergency (ER) | payer BC ==
--- NOTE | 2018-05-15 16:32 | ER Document Report ---
HPI - HPI Patient complains to provider of: twisted left ankle Onset: Yesterday - pm Quality of pain: Throbbing Pain Level: 4 Context: 47 yo female twisted left anle last night. Very sore and swollen. Associated Symptoms: None Exacerbated by: Movement Relieved by: Denies - ROS ROS below otherwise negative: Yes Systems Reviewed and Negative: Yes All other systems reviewed and negative - REPRODUCTIVE Reproductive: DENIES: : Past Medical History - General Information source: Patient - Social History Smoking Status: Current Every Day Smoker Frequency of alcohol use: None Drug Abuse: None Lives with: Family Family History: Reviewed & Not Pertinent Pulmonary Medical History: Reports: Hx Asthma, Hx COPD Renal/ Medical History: Denies: Hx Peritoneal Dialysis Psychiatric Medical History: Denies: Hx Depression Past Surgical History: Reports: Hx Gynecologic Surgery - ablation, Hx Tubal Ligation - Immunizations Hx Diphtheria, Pertussis, Tetanus Vaccination: Yes - unknown Vertical Provider Document - CONSTITUTIONAL Agree With Documented VS: Yes Exam Limitations: No Limitations General Appearance: No Apparent Distress - INFECTION CONTROL TRAVEL OUTSIDE OF THE [place] IN LAST 30 DAYS: No - MUSCULOSKELETAL/EXTREMETIES Musculoskeletal/Extremeties: Tender, Edema, Eccymosis - medial and lateral malleoli - NEURO Level of Consciousness: Alert Motor/Sensory: No Motor Deficit, No Sensory Deficit Notes: 2+ dp - DERM Notes: pink 4mm abrasion over the left MCP joint with minimal lymphangisit to mid arch Course - Re-evaluation Re-evalutation: 05/15/18 fx distal fibula per rad - Vital Signs Vital signs: Temp Pulse Resp BP Pulse Ox 98.7 F 83 18 126/70 H 95 05/15/18 16:09 05/15/18 16:09 05/15/18 16:09 05/15/18 16:09 05/15/18 16:09 Procedures - Immobilization Left Ankle Time completed: 17:55 Pre-Proc Neuro Vasc Exam: Normal Immobilizer type: Posterior ankle Performed by: PCT Post-Proc Neuro Vasc Exam: Normal Alignment checked and good: Yes Discharge - Discharge Clinical Impression: Distal left fibular fracture, Infected abrasion, Lymphangitis Condition: Good Disposition: HOME, SELF-CARE Instructions: Cephalexin ([facility]), Use of Crutches ([facility]), Fracture of Distal Fibula ([facility]), Ibuprofen (General) ([facility]), Oral Narcotic Medication ([facility]), Splint Precautions ([facility]), Temporary Splint ([facility]) Additional Instructions: call for appt. at the orthpedic doctor tomorrow Someone needs to examine the wound on your foot tomorrow if he cannot see the orthopedics and wanted to return here to the emergency room Use the crutches Motrin 3 times a day for inflammation antibiotics as prescribed Pain medication as prescribed Elevate the injury Prescriptions: Hydrocodone Bit/Acetaminophen [Hydrocodon-Acetaminophen 5-325] 1 each PO Q4HP PRN #15 tablet PRN Reason: Ibuprofen [Motrin 800 mg Tablet] 800 mg PO Q8HP PRN #30 tablet PRN Reason: Cephalexin Monohydrate [Keflex 500 mg Capsule] 500 mg PO QID #28 capsule Forms: Return to Work Referrals: ABDIFATAH CANAS MD [ACTIVE STAFF] - Follow up tomorrow
[2018-05-15] MEDS ORDERED: CEPHALEXIN 500 MG CAPSULE PO ONE (17:08)
--- NOTE | 2018-05-15 17:09 | RADIOLOGY REPORT (SQ) ---
EXAM DESCRIPTION: ANKLE LEFT COMPLETE COMPLETED DATE/TIME: 05/15/2018 4:58 pm REASON FOR STUDY: fall COMPARISON: None. NUMBER OF VIEWS: Three views. TECHNIQUE: AP, lateral, and oblique radiographic images acquired of the left ankle. LIMITATIONS: None. FINDINGS: MINERALIZATION: Normal. BONES: There is an oblique fracture of the distal fibula. No other evidence for fracture is seen. JOINTS: No effusions. SOFT TISSUES: Soft tissue swelling is identified OTHER: No other significant finding. IMPRESSION: Oblique fracture of the distal fibula. There is associated soft tissue swelling TECHNICAL DOCUMENTATION: JOB ID: [id number] [employer]- All Rights Reserved Reading location - IP/workstation name: [email or web address]
--- NOTE | 2018-05-15 17:10 | RADIOLOGY REPORT (SQ) ---
EXAM DESCRIPTION: FOOT LEFT COMPLETE COMPLETED DATE/TIME: 05/15/2018 4:58 pm REASON FOR STUDY: fall COMPARISON: None. NUMBER OF VIEWS: Three views. TECHNIQUE: AP, lateral and oblique radiographic images acquired of the left foot. LIMITATIONS: None. FINDINGS: MINERALIZATION: Normal. BONES: No acute fracture or dislocation. No worrisome bone lesions. JOINTS: No effusions. SOFT TISSUES: No soft tissue swelling. No foreign body. OTHER: No other significant finding. IMPRESSION: NEGATIVE STUDY OF THE LEFT FOOT. NO RADIOGRAPHIC EVIDENCE OF ACUTE INJURY. TECHNICAL DOCUMENTATION: JOB ID: [id number] [employer]- All Rights Reserved Reading location - IP/workstation name: [email or web address]
[2018-05-15] MEDS ORDERED: DIPH/PERTUSS(ACELL)/TETANUS VAC/PF 0.5 ML SYR (>=10YO) IM ONE (17:52)
[2018-05-15 18:35] VITALS: BP 123/61
== END 2018-05-15 18:35 | disposition home or self-care (01) ==
LOC: ER 15:27
PROC: 2W3RX1Z Immobilization of Left Lower Leg using Splint (ICD-10-PCS; principal; 2018-05-15)
DX: S82.832A Other fracture of upper and lower end of left fibula, initial encounter for closed fracture (principal); I89.1 Lymphangitis; X50.0XXA Overexertion from strenuous movement or load, initial encounter; F17.200 Nicotine dependence, unspecified, uncomplicated; J44.9 Chronic obstructive pulmonary disease, unspecified; Z98.51 Tubal ligation status; Z23 Encounter for immunization
CPT/HCPCS: 90471; 90715; 99283

== ENCOUNTER 2018-09-26 05:04 | Emergency (ER) | payer SELFPAY ==
[2018-09-26] MEDS ORDERED: IPRATROPIUM/ALBUTEROL 0.5-2.5 MG/3 ML AMPUL NEB ONE ×3 (05:24→05:25)
[2018-09-26] MEDS ORDERED: PREDNISONE 20 MG TABLET PO ONE (05:24)
--- NOTE | 2018-09-26 06:04 | RADIOLOGY REPORT (SQ) ---
EXAM DESCRIPTION: XR CHEST 1 VIEW COMPLETED DATE/TME: 09/26/2018 05:40 CLINICAL HISTORY: 48 years Female, sob COMPARISON: None. NUMBER OF VIEWS/TECHNIQUE: 1/AP FINDINGS: Increased lung volume, clear parenchyma, normal cardiac silhouette, atherosclerosis, and intact bony thorax. IMPRESSION: No acute cardiopulmonary findings.
--- NOTE | 2018-09-26 06:18 | ER Document Report ---
ED Respiratory Problem - General Chief Complaint: Shortness Of Breath Stated Complaint: ASTHMA CONCERNS Time Seen by Provider: 09/26/18 05:26 Notes: Patient is a 48-year-old female presents to the emergency department complaining of shortness of breath. Patient states she has a history of asthma and has had a cough and congestion for the last couple of days. Patient denies any fever. Patient states she no longer has any more of her albuterol for her nebulizer machine so she has not been able to take it. Patient is also requesting a refill on her albuterol inhaler. Patient does admit to smoking on a daily basis. Patient does admit to some generalized chest tightness when she tries to take a deep breath. States that this started after she noticed her respiratory distress. Past medical history: None Medications: Albuterol Allergies: Seasonal TRAVEL OUTSIDE OF THE [place] IN LAST 30 DAYS: No - Related Data Allergies/Adverse Reactions: No Known Allergies Allergy (Verified 05/15/18 15:28) Past Medical History - General Information source: Patient - Social History Smoking Status: Current Every Day Smoker Family History: Reviewed & Not Pertinent Pulmonary Medical History: Reports: Hx Asthma, Hx COPD Renal/ Medical History: Denies: Hx Peritoneal Dialysis Psychiatric Medical History: Denies: Hx Depression Past Surgical History: Reports: Hx Gynecologic Surgery - ablation, Hx Tubal Ligation - Immunizations Hx Diphtheria, Pertussis, Tetanus Vaccination: Yes - unknown Review of Systems - Review of Systems Constitutional: See HPI EENT: See HPI Cardiovascular: See HPI Respiratory: See HPI Gastrointestinal: No symptoms reported Genitourinary: No symptoms reported Female Genitourinary: No symptoms reported Musculoskeletal: No symptoms reported Skin: No symptoms reported Hematologic/Lymphatic: No symptoms reported Neurological/Psychological: No symptoms reported Physical Exam - Vital signs Vitals: Temp Pulse Resp BP Pulse Ox 97.7 F 85 18 113/97 H 92 09/26/18 05:15 09/26/18 05:15 09/26/18 05:15 09/26/18 05:15 09/26/18 05:15 - Notes Notes: GENERAL: Alert, interacts well. No acute distress. HEAD: Normocephalic, atraumatic. EYES: Pupils equal, round, and reactive to light. Extraocular movements intact. ENT: Oral mucosa moist, tongue midline. Nares patent, TM's intact nonerythematous, nonbulging, pharynx within normal limits, no palatal petechiae or exudate noted. NECK: Full range of motion. Supple. Trachea midline. No lymphadenopathy appreciated LUNGS: Inspiratory and expiratory wheezing noted all díaz. No rales, or rhonchi noted all díaz. No respiratory distress, patient able to speak in full sentences HEART: Regular rate and rhythm. No murmur ABDOMEN: Soft, non-tender. Non-distended. Bowel sounds present in all 4 quadrants. EXTREMITIES: Moves all 4 extremities spontaneously. No edema, normal radial and dorsalis pedis pulses bilaterally. No cyanosis. BACK: no cervical, thoracic, lumbar midline tenderness. No saddle anesthesia, normal distal neurovascular exam. NEUROLOGICAL: Alert and oriented x3. Normal speech. cranial nerves II through XII grossly intact PSYCH: Normal affect, normal mood. SKIN: Warm, dry, normal turgor. No rashes or lesions noted. Course - Re-evaluation Re-evalutation: 09/26/18 06:17 Patient's initial oxygen saturation in triage was 92%. I was in the room as patient walks back to room 17 and was placed on the monitor. Patient's pulse ox noted to be 95%. After walking down the damon patient exhibits no signs of respiratory distress. Patient is able to speak in full sentences and is not tachypneic at this time. Patient's lung sounds do reveal inspiratory expiratory wheezes all díaz, DuoNeb treatments and steroids ordered. Chest x-ray ordered due to cough, congestion. Chest x-ray reveals no signs of pneumonia, pneumothorax, rib fractures. 09/26/18 06:26 Patient states she feels "a whole lot better" after breathing treatments in the emergency room. Upon auscultation of lung sounds there is a faint and expiratory wheeze heard bilateral bases. Patient does have a dry cough. Discussed giving the patient another breathing treatment in the emergency room. Patient wishes to decline that at this time. States she wants to go home now that she is feeling better. Patient's pulse ox documented at 96% with a good pleth as I am discussing discharge instructions with her at bedside. - Vital Signs Vital signs: Temp Pulse Resp BP Pulse Ox 97.7 F 85 19 112/45 L 92 09/26/18 05:15 09/26/18 05:15 09/26/18 05:26 09/26/18 05:26 09/26/18 05:26 Discharge - Discharge Clinical Impression: Bronchospasm Upper respiratory infection Qualifiers: URI type: unspecified viral URI Qualified Code(s): J06.9 - Acute upper respiratory infection, unspecified Asthma Qualifiers: Asthma severity: moderate Asthma persistence: unspecified Asthma complication type: with acute exacerbation Qualified Code(s): J45.901 - Unspecified asthma with (acute) exacerbation Condition: Stable Disposition: HOME, SELF-CARE Instructions: Upper Respiratory Illness ([facility]), Bronchospasm ([facility]), Asthma ([facility]) Additional Instructions: As we discussed you have been seen and treated in the emergency department for an upper respiratory infection, and an exacerbation of your asthma. You should take albuterol every 4 hours for the next 24 hours. Then use it as needed. Please also take prednisone as prescribed. Please make sure use her spacer every time you use your albuterol inhaler. Please return to the emergency room for any other concerning symptoms. Prescriptions: Albuterol Sulfate [Proair HFA Inhalation Aerosol 8.5 gm MDI] 2 puff IH Q4H PRN #1 mdi PRN Reason: Albuterol Sulfate [Ventolin 0.083% Neb 2.5 mg/3 mL Ampul] 1 vial NEB Q4 #30 vial Prednisone [Deltasone 20 mg Tablet] 3 tab PO DAILY 5 Days tablet Forms: Smoking Cessation Education
[2018-09-26] MEDS ORDERED: ALBUTEROL SULFATE HFA (90 MCG/PUFF) 8 GM MDI (1 MDI/ER DISP) IH ONE (06:33)
[2018-09-26 07:00] VITALS: BP 121/79
== END 2018-09-26 06:50 | disposition home or self-care (01) ==
LOC: ER 05:04
DX: J45.901 Unspecified asthma with (acute) exacerbation (principal); R06.02 Shortness of breath; R07.9 Chest pain, unspecified; F17.200 Nicotine dependence, unspecified, uncomplicated; J44.9 Chronic obstructive pulmonary disease, unspecified
CPT/HCPCS: 94640; 99285; 71045; J7512; J3490; J7620

== ENCOUNTER 2018-10-05 09:29 | Emergency (ER) | payer SELFPAY ==
--- NOTE | 2018-10-05 10:34 | ER Document Report ---
HPI - HPI Patient complains to provider of: sinsus pain Time Seen by Provider: 10/05/18 10:07 Onset: Last week Onset/Duration: Persistent, Worse Quality of pain: Achy, Throbbing Severity: Moderate Pain Level: 3 Context: Patient presents emergency department with reports of sinus infection. Patient reports she gets it every year. She reports she is been using nasal rinses and has had some relief but not enough. She denies fever vomiting diarrhea. Reports pain /swelling to the left side of her face. Patient also reports she has a bad molar that needs to be fixed. Patient also reports she has been taking Motrin for the pain. Associated Symptoms: None Exacerbated by: Denies Relieved by: Denies Similar symptoms previously: Yes Recently seen / treated by doctor: Yes - NEURO Neurology: REPORTS: Headache - frontal, Vision blurred - mild in left eye - REPRODUCTIVE Reproductive: DENIES: : Past Medical History - General Information source: Patient - Social History Smoking Status: Current Every Day Smoker Cigarette use (# per day): Yes Frequency of alcohol use: None Drug Abuse: None Family History: Reviewed & Not Pertinent Patient has suicidal ideation: No Patient has homicidal ideation: No Pulmonary Medical History: Reports: Hx Asthma, Hx COPD Renal/ Medical History: Denies: Hx Peritoneal Dialysis Psychiatric Medical History: Denies: Hx Depression Traumatic Medical History: Reports: Hx Fractures Past Surgical History: Reports: Hx Appendectomy, Hx Gynecologic Surgery - ablation, Hx Tubal Ligation - Immunizations Hx Diphtheria, Pertussis, Tetanus Vaccination: Yes - unknown Vertical Provider Document - CONSTITUTIONAL Agree With Documented VS: Yes Exam Limitations: No Limitations General Appearance: WD/WN, No Apparent Distress - Patient is in no distress but looks uncomfortable tearful - INFECTION CONTROL TRAVEL OUTSIDE OF THE [place] IN LAST 30 DAYS: No - HEENT HEENT: Atraumatic, Normocephalic. negative: Conjuctival Injection, Pharyngeal Exudate, Pharyngeal Tenderness, Pharyngeal Erythema, Tympanic Membrane Red, Tympanic Membrane Bulging Mouth Diagram: 1 - Widespread dental decay opens mouth wide no trismus no ludwigs clear voice Notes: Side maxillary tender to palpation area swollen. bilateral turbinates with erythema - NECK Neck: Normal Inspection, Supple. negative: Lymphadenopathy-Left, Lymphadenopat hy-Right - RESPIRATORY Respiratory: No Respiratory Distress, Wheezing - CARDIOVASCULAR Cardiovascular: Regular Rate, Regular Rhythm - GI/ABDOMEN Gastrointestinal: Abdomen Soft, Abdomen Non-Tender - MUSCULOSKELETAL/EXTREMETIES Musculoskeletal/Extremeties: SACHIN PORTILLO - NEURO Level of Consciousness: Awake - DERM Integumentary: Warm, Dry Adult Front & Back Diagram: 1 - Reports pain , some swelling, erythema no warmth. Course - Re-evaluation Re-evalutation: 10/05/18 10:44 Patient was instructed on antibiotics Flonase and Motrin for the pain. She declined narcotics. Patient was instructed on the importance of monitoring her signs and symptoms to return immediately to the emergency department should they worsen. She verbalized understanding to all instructions. Denies allergies to any medic condom medications. - Vital Signs Vital signs: Temp Pulse Resp BP Pulse Ox 98.7 F 85 18 127/71 H 94 10/05/18 09:38 10/05/18 09:38 10/05/18 09:38 10/05/18 09:38 10/05/18 09:38 Discharge - Discharge Clinical Impression: Sinusitis Qualifiers: Sinusitis location: maxillary Chronicity: acute Recurrence: not specified as recurrent Qualified Code(s): J01.00 - Acute maxillary sinusitis, unspecified Condition: Stable Disposition: HOME, SELF-CARE Instructions: Augmentin ([facility]), Ibuprofen (General) ([facility]), Nasal Corticosteroid Inhaler ([facility]), Sinusitis ([facility]), Stop Smoking ([facility]) Additional Instructions: *You have been evaluated for sinusitis *Quit smoking, use nasal spray as prescribed *Take medication as prescribed *Monitor your temperature, take motrin as prescribed *Follow up with a primary care provider within 3 days or return to the ED for worsening symptoms *Return to ED for worsening condition, changes, needs Monitor your blood pressure. Your blood pressure was elevated today. This may be because you were anxious, in pain or because you need medication. It is important to follow up with your primary care provider for full evaluation. Prescriptions: Amox Tr/Potassium Clavulanate [Augmentin 875-125 mg Tablet] 1 tab PO BID #20 tablet Fluticasone Propionate [Flonase Nasal [place] 50 Mcg/[place] 16 gm] 1 spray NASL Q12 #1 inhaler Ibuprofen [Motrin 800 mg Tablet] 800 mg PO TID #20 tablet Forms: Smoking Cessation Education, Elevated Blood Pressure
[2018-10-05] MEDS ORDERED: AMOXICILLIN TR/POT CLAVULANATE 500-125 MG TAB PO ONE (10:36)
[2018-10-05] MEDS ORDERED: IBUPROFEN 800 MG TABLET PO ONE (10:36)
[2018-10-05 11:05] VITALS: BP 135/76
== END 2018-10-05 10:55 | disposition home or self-care (01) ==
LOC: ER 09:29
DX: J01.00 Acute maxillary sinusitis, unspecified (principal); K02.9 Dental caries, unspecified; H53.8 Other visual disturbances; F17.210 Nicotine dependence, cigarettes, uncomplicated; J44.9 Chronic obstructive pulmonary disease, unspecified
CPT/HCPCS: 99283

== ENCOUNTER 2018-12-22 05:49 | Emergency (ER) | payer SELFPAY ==
[2018-12-22] MEDS ORDERED: MAGNESIUM SULFATE/D5W 1 GM/100 ML RTUPB IV ONE (06:25)
[2018-12-22] MEDS ORDERED: METHYLPREDNISOLONE INJ 125 MG/2 ML SDV IV ONE (06:25)
[2018-12-22] MEDS ORDERED: IPRATROPIUM/ALBUTEROL 0.5-2.5 MG/3 ML AMPUL NEB ONE ×2 (06:25→08:54)
[2018-12-22] MEDS ORDERED: ONDANSETRON HCL INJ/PF 4 MG/2 ML SDV IV ONE (06:39)
[2018-12-22] MEDS ORDERED: ALBUTEROL SULFATE 0.083% NEB 2.5 MG/3 ML AMPUL NEB ONE (07:32)
[2018-12-22 07:58] LABS: ABSOLUTE BASOPHILS # (AUTO) 0.1 10^3/uL (0.0-0.2); ABSOLUTE EOSINOPHILS # (AUTO) 0.4 10^3/uL (0.0-0.6); ABSOLUTE MONOCYTES (AUTO) 0.7 10^3/uL (0.1-1.4); ABSOLUTE NEUT (AUTO) 3.2 10^3/uL (1.7-8.2); BASOPHILS % (AUTO) 1.1 % (0-2); EOSINOPHILS % (AUTO) 5.2 % (0-6); HEMATOCRIT 40.4 % (36.0-47.0); LYMPHOCYTES % (AUTO) 40.8 % (13-45); MEAN CORPUSCULAR HEMOGLOBIN 31.5 pg (27.0-33.4); MEAN CORPUSCULAR HGB CONC 34.7 g/dL (32.0-36.0); MEAN CORPUSCULAR VOLUME 91 fl (80-97); MONOCYTES % (AUTO) 9.2 % (3-13); PLATELET COUNT 219 10^3/uL (150-450); RED BLOOD COUNT 4.45 10^6/uL (3.72-5.28); RED CELL DISTRIBUTION WIDTH 13.6 % (11.5-14.0); SEGMENTED NEUTROPHILS % (AUTO) 43.7 % (42-78); TOTAL CELLS COUNTED % (AUTO) 100 %; WHITE BLOOD COUNT 7.4 10^3/uL (4.0-10.5)
--- NOTE | 2018-12-22 08:00 | EKG REPORT ---
SEVERITY:- NORMAL ECG - SINUS RHYTHM : Confirmed by: Jesús Mcmillan MD 22-Dec-2018 07:59:39
[2018-12-22 08:02] LABS: ANION GAP 8 (5-19); BLOOD UREA NITROGEN 16 mg/dL (7-20); CALCIUM 9.8 mg/dL (8.4-10.2); CARBON DIOXIDE 25 mmol/L (22-30); CHLORIDE 108 mmol/L (98-107); GLUCOSE 109 mg/dL (75-110); POTASSIUM 4.1 mmol/L (3.6-5.0); SODIUM 141.1 mmol/L (137-145)
[2018-12-22] MEDS ORDERED: LEVOFLOXACIN 500 MG/D5W RTU 500 MG/100 ML RTUPB IV ONE (08:10)
--- NOTE | 2018-12-22 08:15 | RADIOLOGY REPORT (SQ) ---
EXAM DESCRIPTION: CHEST 2 VIEWS COMPLETED DATE/TIME: 12/22/2018 7:56 am REASON FOR STUDY: sob COMPARISON: 09/26/2018 EXAM PARAMETERS: NUMBER OF VIEWS: two views TECHNIQUE: Digital Frontal and Lateral radiographic views of the chest acquired. RADIATION DOSE: NA LIMITATIONS: none FINDINGS: LUNGS AND PLEURA: Left upper lobe -left lingula parenchymal opacity, suggest infiltrates. The right lung is clear. No pneumothorax or pleural effusion. MEDIASTINUM AND HILAR STRUCTURES: No masses or contour abnormalities. HEART AND VASCULAR STRUCTURES: Heart normal size. No evidence for failure. BONES: No acute findings. HARDWARE: None in the chest. OTHER: No other significant finding. IMPRESSION: 1. Left upper lobe--left lingula parenchymal opacities, suggest infiltrates. COMMENT: 1. The results of this examination were discussed with emergency department provider on at 08:08 hours. TECHNICAL DOCUMENTATION: JOB ID: [id number] [employer]- All Rights Reserved Reading location - IP/workstation name: [email or web address]
[2018-12-22] MEDS ORDERED: TERBUTALINE SULFATE INJ/PF 1 MG/1 ML SDV SUBCUT ONE (08:55)
[2018-12-22] MEDS ORDERED: LEVOFLOXACIN 500 MG TABLET PO ONE (10:27)
[2018-12-22] MEDS ORDERED: PREDNISONE 20 MG TABLET PO ONE (10:27)
[2018-12-22] MEDS ORDERED: ALBUTEROL SULFATE HFA (90 MCG/PUFF) 8 GM MDI (1 MDI/ER DISP) IH ONE (10:33)
--- NOTE | 2018-12-22 10:33 | ER Document Report ---
ED General - General Chief Complaint: Shortness Of Breath Stated Complaint: SHORTNESS OF BREATH Time Seen by Provider: 12/22/18 06:06 TRAVEL OUTSIDE OF THE [place] IN LAST 30 DAYS: No - HPI Patient complains to provider of: Shortness of breath Notes: Patient coming in for evaluation of shortness of breath. Patient states has history of asthma is ran out of her bronchodilator therapy. Patient denies any recent steroid use and about. Denies fevers chills nausea vomiting diarrhea. Patient denies any chest pain. Patient denies recent travel out of state or out of country denies any sick contacts. Patient otherwise is resting comfortably with audible wheezing. Patient looks to be in no obvious distress. - Related Data Allergies/Adverse Reactions: No Known Allergies Allergy (Verified 05/15/18 15:28) Past Medical History - Social History Smoking Status: Never Smoker Family History: Reviewed & Not Pertinent Patient has suicidal ideation: No Patient has homicidal ideation: No Pulmonary Medical History: Reports: Hx Asthma, Hx COPD Renal/ Medical History: Denies: Hx Peritoneal Dialysis Psychiatric Medical History: Denies: Hx Depression Traumatic Medical History: Reports: Hx Fractures Past Surgical History: Reports: Hx Appendectomy, Hx Gynecologic Surgery - ablation, Hx Tubal Ligation - Immunizations Hx Diphtheria, Pertussis, Tetanus Vaccination: Yes - unknown Review of Systems - Review of Systems Constitutional: No symptoms reported EENT: No symptoms reported Cardiovascular: No symptoms reported Respiratory: Short of breath, Wheezing Gastrointestinal: No symptoms reported Genitourinary: No symptoms reported Female Genitourinary: No symptoms reported Musculoskeletal: No symptoms reported Skin: No symptoms reported Hematologic/Lymphatic: No symptoms reported Neurological/Psychological: No symptoms reported -: Yes All other systems reviewed and negative Physical Exam - Vital signs Vitals: Temp Pulse Resp Pulse Ox 98.3 F 84 28 H 93 12/22/18 05:53 12/22/18 05:53 12/22/18 05:53 12/22/18 05:53 Interpretation: Normal - General General appearance: Appears well, Alert - HEENT Head: Normocephalic, Atraumatic Eyes: Normal Pupils: PERRL - Respiratory Respiratory status: No respiratory distress Chest status: Nontender Breath sounds: Wheezing Chest palpation: Normal - Cardiovascular Rhythm: Regular Heart sounds: Normal auscultation Murmur: No - Abdominal Inspection: Normal Distension: No distension Bowel sounds: Normal Tenderness: Nontender Organomegaly: No organomegaly - Back Back: Normal, Nontender - Extremities General upper extremity: Normal inspection, Nontender, Normal color, Normal ROM, Normal temperature General lower extremity: Normal inspection, Nontender, Normal color, Normal ROM, Normal temperature, Normal weight bearing. No: Angelita's sign - Neurological Neuro grossly intact: Yes Cognition: Normal Orientation: AAOx4 Carson Coma Scale Eye Opening: Spontaneous Perry Coma Scale Verbal: Oriented Perry Coma Scale Motor: Obeys Commands Carson Coma Scale Total: 15 Speech: Normal Motor strength normal: LUE, RUE, LLE, RLE Sensory: Normal - Psychological Associated symptoms: Normal affect, Normal mood - Skin Skin Temperature: Warm Skin Moisture: Dry Skin Color: Normal Course - Re-evaluation Re-evalutation: 12/22/18 12:25 Patient presents asthma exacerbation with a chest x-ray showed pneumonia. Patient was given multiple breathing treatments with improvement of her symptoms. Patient was also given a dose of IV Levaquin and a p.o. dose to take home to take in the next 24 hours. Patient ambulated around the ER without any difficulty no signs of hypoxia. Patient states that she is feeling better with treatments here. Patient agrees with outpatient therapy. Patient will be discharged home. - Vital Signs Vital signs: Temp Pulse Resp BP Pulse Ox 98.0 F 84 19 119/71 96 12/22/18 10:43 12/22/18 05:53 12/22/18 10:43 12/22/18 10:43 12/22/18 10:43 - Laboratory Result Diagrams: 12/22/18 06:00 12/22/18 06:00 Laboratory results interpreted by me: 12/22/18 06:00 Chloride 108 H Discharge - Discharge Clinical Impression: Asthma exacerbation Qualifiers: Asthma severity: mild Asthma persistence: unspecified Qualified Code(s): J45.901 - Unspecified asthma with (acute) exacerbation Pneumonia Qualifiers: Pneumonia type: due to unspecified organism Laterality: left Lung location: upper lobe of lung Qualified Code(s): J18.1 - Lobar pneumonia, unspecified organism Condition: Good Instructions: Asthma ([facility]), Levofloxacin, Pneumonia ([facility]) Additional Instructions: Your evaluation today is consistent with pneumonia on the chest x-ray and slight asthma exacerbation. Please use the inhaler that we gave you here in ER 2 puffs every 4 hours as needed for shortness of breath or use your nebulizer as well We will start you on antibiotic called Levaquin. Please take this as prescribed. Please take the dose of Levaquin that we gave you here in ER tomorrow Please take your prednisone as prescribed Prescriptions: Albuterol Sulfate [Proair HFA Inhalation Aerosol 8.5 gm MDI] 2 puff IH Q4H PRN #1 mdi PRN Reason: Albuterol Sulfate [Ventolin 0.083% Neb 2.5 mg/3 mL Ampul] 2.5 mg NEB Q4 #30 vial.neb Levofloxacin [Levaquin] 500 mg PO DAILY 8 Days tablet Prednisone [Deltasone] 60 mg PO DAILY #24 tablet Forms: Return to Work
[2018-12-22 10:48] VITALS: BP 119/71
== END 2018-12-22 11:00 | disposition home or self-care (01) ==
LOC: ER 05:49
DX: J45.901 Unspecified asthma with (acute) exacerbation (principal); J18.1 Lobar pneumonia, unspecified organism; Z98.51 Tubal ligation status
CPT/HCPCS: 93005; 94640 ×2; 99285; 96372; 96375; 96365; 36415; 85025; 80048; 84484; 71046; 93010; J1956; J2930; J3475; J3105; J2405; J7620

== ENCOUNTER 2019-01-19 21:27 | Inpatient (IN) | payer SELFPAY ==
[2019-01-19] MEDS ORDERED: METHYLPREDNISOLONE INJ 125 MG/2 ML SDV IV ONE (21:34)
[2019-01-19] MEDS ORDERED: IPRATROPIUM/ALBUTEROL 0.5-2.5 MG/3 ML AMPUL NEB ONE (21:34)
--- NOTE | 2019-01-19 21:38 | ER Document Report ---
ED Medical Screen (RME) - General Chief Complaint: Asthma Exacerbation Stated Complaint: TROUBLE BREATHING Time Seen by Provider: 01/19/19 21:33 Notes: 48-year-old asthmatic who smokes chief complaint of difficulty breathing, recently completed steroids from recent flareup. No fever at home. Patient using albuterol inhaler and nebulizer at home without improvement. TRAVEL OUTSIDE OF THE [place] IN LAST 30 DAYS: No - Related Data Allergies/Adverse Reactions: No Known Allergies Allergy (Verified 05/15/18 15:28) Past Medical History - Social History Family history: Reviewed & Not Pertinent Pulmonary Medical History: Reports: Hx Asthma, Hx COPD Renal/ Medical History: Denies: Hx Peritoneal Dialysis Psychiatric Medical History: Denies: Hx Depression Traumatic Medical History: Reports: Hx Fractures Past Surgical History: Reports: Hx Appendectomy, Hx Gynecologic Surgery - ablation, Hx Tubal Ligation - Immunizations Hx Diphtheria, Pertussis, Tetanus Vaccination: Yes - unknown Physical Exam - Vital signs Vitals: Temp Pulse Resp BP Pulse Ox 99.3 F 113 H 31 H 140/86 H 89 L 01/19/19 21:30 01/19/19 21:30 01/19/19 21:30 01/19/19 21:30 01/19/19 21:30 - Respiratory Respiratory status: Labored, Tachypnea Breath sounds: Decreased air movement, Nonproductive cough, Wheezing Course - Re-evaluation Re-evalutation: Patient tachypneic, expiratory wheezes throughout, hypoxic, tachycardic. Placing a nebulizer, triage level 2, calling for room. I have greeted and performed a rapid initial assessment of this patient. A comprehensive ED assessment and evaluation of the patient, analysis of test results and completion of the medical decision making process will be conducted by additional ED providers. - Vital Signs Vital signs: Temp Pulse Resp BP Pulse Ox 99.3 F 113 H 31 H 140/86 H 89 L 01/19/19 21:30 01/19/19 21:30 01/19/19 21:30 01/19/19 21:30 01/19/19 21:30
[2019-01-19 21:59] LABS: ABSOLUTE BASOPHILS # (AUTO) 0.1 10^3/uL (0.0-0.2); ABSOLUTE EOSINOPHILS # (AUTO) 0.4 10^3/uL (0.0-0.6); ABSOLUTE LYMPHOCYTES (AUTO) 1.8 10^3/uL (0.5-4.7); ABSOLUTE NEUT (AUTO) 9.9 10^3/uL (1.7-8.2); BASOPHILS % (AUTO) 0.4 % (0-2); HEMATOCRIT 40.9 % (36.0-47.0); HEMOGLOBIN 14.1 g/dL (12.0-15.5); LYMPHOCYTES % (AUTO) 13.7 % (13-45); MEAN CORPUSCULAR HEMOGLOBIN 31.1 pg (27.0-33.4); MEAN CORPUSCULAR HGB CONC 34.6 g/dL (32.0-36.0); MEAN CORPUSCULAR VOLUME 90 fl (80-97); MONOCYTES % (AUTO) 7.3 % (3-13); PLATELET COUNT 227 10^3/uL (150-450); RED BLOOD COUNT 4.54 10^6/uL (3.72-5.28); RED CELL DISTRIBUTION WIDTH 13.6 % (11.5-14.0); SEGMENTED NEUTROPHILS % (AUTO) 75.6 % (42-78); TOTAL CELLS COUNTED % (AUTO) 100 %; VENOUS BLOOD BASE EXCESS -2.6 mmol/L; VENOUS BLOOD HCO3 22.6 mmol/L (20-32); VENOUS BLOOD PCO2 40.8 mmHg (35-63); VENOUS BLOOD PH 7.36 (7.30-7.42)
[2019-01-19 22:15] LABS: ANION GAP 9 (5-19); BLOOD UREA NITROGEN 8 mg/dL (7-20); CALCIUM 9.7 mg/dL (8.4-10.2); CARBON DIOXIDE 23 mmol/L (22-30); CHLORIDE 107 mmol/L (98-107); GLUCOSE 90 mg/dL (75-110); SODIUM 138.9 mmol/L (137-145)
--- NOTE | 2019-01-19 22:26 | RADIOLOGY REPORT (SQ) ---
EXAM DESCRIPTION: [facility]: XR CHEST 1 VIEW CLINICAL HISTORY: 48 years Female, hypoxia, difficulty breathing COMPARISON: 12/22/2018 FINDINGS: Lungs are mildly hyperinflated but clear, with no focal infiltrate, pneumothorax, or pleural effusion. Previously demonstrated density in the left midlung field has resolved. Mediastinum is within normal limits for this positioning. Bony structures are unremarkable. IMPRESSION: No acute pulmonary findings.
[2019-01-19] MEDS ORDERED: ONDANSETRON HCL INJ/PF 4 MG/2 ML SDV IV ONE (22:27)
[2019-01-19] MEDS ORDERED: ALBUTEROL SULFATE 0.083% NEB 2.5 MG/3 ML AMPUL NEB ONE (22:27)
--- NOTE | 2019-01-19 22:37 | ER Document Report ---
Entered by GREGORIO CLARKE SCRIBE 01/19/19 1290 Acting as scribe for:JO ANN RODRIGUEZ DO ED Respiratory Problem - General Chief Complaint: Asthma Exacerbation Stated Complaint: TROUBLE BREATHING Time Seen by Provider: 01/19/19 21:33 Mode of Arrival: Ambulatory Information source: Patient Notes: 48 year old female that presents to the emergency department today with co mplaints of shortness of breath for the last two weeks. Patient states that today when she got home from work her shortness of breath became much worse. Patient states she was seen here about 2 weeks ago and was put on pro-air, given nebulizer treatments, and sent home on steroids. Patient states she is also taking [id number] Sudafed and Benadryl with little relief. Patient has a history of asthma and has had to be intubated in the past with the last time being in 5th grade. Patient states she wishes not to have magnesium unless absolutely necessary due to associated nausea she gets when taking it. Patient denies any fevers. TRAVEL OUTSIDE OF THE [place] IN LAST 30 DAYS: No - Related Data Allergies/Adverse Reactions: magnesium Adverse Reaction (Verified 01/19/19 22:05) nausea pt reported Past Medical History - General Information source: Patient - Social History Smoking Status: Current Every Day Smoker Cigarette use (# per day): Yes Frequency of alcohol use: None Drug Abuse: None Lives with: Family Family History: Reviewed & Not Pertinent Patient has suicidal ideation: No Patient has homicidal ideation: No Pulmonary Medical History: Reports: Hx Asthma, Hx COPD Traumatic Medical History: Reports: Hx Fractures Past Surgical History: Reports: Hx Appendectomy, Hx Gynecologic Surgery - ablation, Hx Tubal Ligation - Immunizations Hx Diphtheria, Pertussis, Tetanus Vaccination: Yes - unknown Review of Systems - Review of Systems Constitutional: denies: Fever EENT: No symptoms reported Cardiovascular: No symptoms reported Respiratory: See HPI, Short of breath, Wheezing Gastrointestinal: No symptoms reported Genitourinary: No symptoms reported Female Genitourinary: No symptoms reported Musculoskeletal: No symptoms reported Skin: No symptoms reported Hematologic/Lymphatic: No symptoms reported Neurological/Psychological: No symptoms reported -: Yes All other systems reviewed and negative Physical Exam - Vital signs Vitals: Temp Pulse Resp BP Pulse Ox 99.3 F 113 H 31 H 140/86 H 89 L 01/19/19 21:30 01/19/19 21:30 01/19/19 21:30 01/19/19 21:30 01/19/19 21:30 Interpretation: Tachycardic, Hypoxic, Tachypneic - Notes Notes: PHYSICAL EXAM GENERAL: Alert, interacts well. Moderate respiratory distress. HEAD: Normocephalic, atraumatic. EYES: Pupils equal, round, and reactive to light. Extraocular movements intact. ENT: Oral mucosa moist, tongue midline. Cobblestoning of posterior oropharynx. Left sided turbinate edema with clear rhinorrhea. TMs are injected bilaterally, normal light reflex bilaterally, TMs are somewhat opacified bilaterally, TMs are bulging bilaterally. NECK: Full range of motion. Supple. Trachea midline. LUNGS: Respiration rate of 24, tachypneic without accessory muscle usage. Trace inspiratory rhonchi, diffuse expiratory rhonchi and wheezing bilaterally. Moderate respiratory distress. HEART: Tachycardia, regular rhythm. No murmurs, gallops, or rubs. ABDOMEN: Soft, non-tender. Non-distended. Bowel sounds present in all 4 quadrants. No guarding, rigidity, or rebound. EXTREMITIES: Moves all 4 extremities spontaneously. No edema, radial and dorsalis pedis pulses 2/4 bilaterally. No cyanosis. NEUROLOGICAL: Alert and oriented x3. Normal speech. PSYCH: Normal affect, normal mood. SKIN: Warm, dry, normal turgor. No rashes or lesions noted. Bedside director of cardiac rehabilitation interpretation: Sinus tachycardia with a rate of 112, per my interpretation. Pulse oximeter at bedside shows saturation of 95% with good waveform on 4L via nasal cannula, no hypoxia per my interpretation. Course - Re-evaluation Re-evalutation: 01/19/19 22:34 CBC shows leukocytosis at 13.0, venous blood gas unremarkable, see BMP unremarkable, chest x-ray unremarkable, no signs of pneumothorax, after having received 3 duo nebs the patient is still requiring 4 L of oxygen via nasal cannula. Patient states that she does not want to take the magnesium, states that it makes her nauseated, patient is improved compared to when she first arrived although she is still having wheezing aeration and is not in severe respiratory distress. Patient is agreeable to receiving magnesium if I think she is going to be need to be intubated if we do not give it to her otherwise she is refusing magnesium. At this time we will try BiPAP instead of magnesium. She is agreeable to this plan. Discussed the patient's case with Dr. Melissa Marin who agrees to admit the patient to Dr. Garcia's service over the weekend. He is homemaking rehabilitation consultant for Dr. Marin. 01/19/19 22:55 Patient with some moderate anxiety and claustrophobia while on BiPAP will be given 0.[address] IV[address] Marin did call back to find out when the last time the patient is seen Dr. Garcia, patient states last time she saw him was in 2017. - Vital Signs Vital signs: Temp Pulse Resp BP Pulse Ox 98.1 F 100 26 H 119/72 91 L 01/20/19 00:17 01/20/19 00:17 01/20/19 00:17 01/20/19 00:17 01/20/19 00:17 - Laboratory Result Diagrams: 01/19/19 21:45 01/19/19 21:45 Laboratory results interpreted by me: 01/19/19 21:45 WBC 13.0 H Absolute Neutrophils 9.9 H Critical Care Note - Critical Care Note Total time excluding time spent on procedures (mins): 35 Discharge - Discharge Clinical Impression: Acute respiratory failure with hypoxia Status asthmaticus Qualifiers: Asthma severity: severe Asthma persistence: persistent Qualified Code(s): J45.52 - Severe persistent asthma with status asthmaticus Condition: Serious Disposition: ADMITTED INPATIENT Admitting Provider: [facility] Unit Admitted: I[facility]U I personally performed the services described in the documentation, reviewed and edited the documentation which was dictated to the scribe in my presence, and it accurately records my words and actions.
[2019-01-19] MEDS: MAGNESIUM SULFATE/D5W 1 GM/100 ML RTUPB IV SCH (22:41)
[2019-01-19] MEDS ORDERED: LORAZEPAM INJ 2 MG/1 ML VIAL IV ONE (22:55)
[2019-01-19] MEDS ORDERED: ALBUTEROL SULFATE 0.083% NEB 2.5 MG/3 ML AMPUL NEB PRN (22:57)
[2019-01-19] MEDS ORDERED: ACETAMINOPHEN 325 MG TABLET PO PRN (23:02)
[2019-01-19] MEDS ORDERED: ONDANSETRON HCL INJ/PF 4 MG/2 ML SDV IV PRN (23:02)
[2019-01-19] MEDS ORDERED: FAMOTIDINE 20 MG TABLET PO ONE (23:15)
[2019-01-20] MEDS: MAGNESIUM SULFATE/D5W 1 GM/100 ML RTUPB IV SCH (00:19)
[2019-01-20 06:35] LABS: ABSOLUTE MONOCYTES (AUTO) 0.2 10^3/uL (0.1-1.4); BASOPHILS % (AUTO) 0.1 % (0-2); HEMATOCRIT 38.5 % (36.0-47.0); LYMPHOCYTES % (AUTO) 6.3 % (13-45); MEAN CORPUSCULAR HEMOGLOBIN 30.7 pg (27.0-33.4); MEAN CORPUSCULAR HGB CONC 33.8 g/dL (32.0-36.0); MEAN CORPUSCULAR VOLUME 91 fl (80-97); MONOCYTES % (AUTO) 1.2 % (3-13); PLATELET COUNT 209 10^3/uL (150-450); RED BLOOD COUNT 4.24 10^6/uL (3.72-5.28); RED CELL DISTRIBUTION WIDTH 13.6 % (11.5-14.0); SEGMENTED NEUTROPHILS % (AUTO) 92.4 % (42-78); TOTAL CELLS COUNTED % (AUTO) 100 %; WHITE BLOOD COUNT 15.2 10^3/uL (4.0-10.5)
[2019-01-20] MEDS: METHYLPREDNISOLONE INJ 125 MG/2 ML SDV IV SCH ×3 (06:50→21:52)
[2019-01-20 06:59] LABS: ANION GAP 9 (5-19); BLOOD UREA NITROGEN 10 mg/dL (7-20); CALCIUM 9.4 mg/dL (8.4-10.2); CARBON DIOXIDE 22 mmol/L (22-30); CHLORIDE 107 mmol/L (98-107); GLUCOSE 156 mg/dL (75-110); POTASSIUM 4.4 mmol/L (3.6-5.0); SODIUM 137.9 mmol/L (137-145)
[2019-01-20] MEDS: NORMAL SALINE 1000 ML 1,000 ML IV PRN ×2 (07:19→23:19)
[2019-01-20] MEDS: IPRATROPIUM/ALBUTEROL 0.5-2.5 MG/3 ML AMPUL NEB SCH ×4 (08:34→19:47)
[2019-01-20] MEDS: ENOXAPARIN SODIUM INJ 40 MG/0.4 ML DISP.SYRIN SUBCUT SCH (10:08)
[2019-01-20] MEDS: FAMOTIDINE 20 MG TABLET PO SCH ×2 (10:08→21:53)
[2019-01-20] MEDS: LEVOFLOXACIN 500 MG/D5W RTU 500 MG/100 ML RTUPB IV SCH (10:09)
--- NOTE | 2019-01-20 10:29 | PDOC H&P ---
History of Present Illness Admission Date/PCP: 01/19/19 22:44 Patient complains of: Trouble breathing History of Present Illness: SHANNAN ROLLINS is a 48 year old female This is a 48-year-old female patient of Dr. Garcia last seen in 2017 noncompliance with the medications continues to smoke 1 pack cigarettes a day with a history of the asthma COPD complaining of a shortness of the breath for the last 2 weeks Patient stated that today when she got home from the work her shortness of the breath became much worse. Patient stated that she was seen here about 2 weeks ago in the ER and was put in [id number] medications with little relief. Patient have a history of the asthma and had been intubated in the past with the last time being when she was /5 grade. Patient's in emergency departments put on IV Solu-Medrol and nebulizer treatments and put on a BiPAP. When I saw the patient on the floor patient is currently feeling much better compared to yesterday when she came patient is currently requiring BiPAP Denied any fever no chills Past Medical History Pulmonary Medical History: Reports: Asthma, Chronic Obstructive Pulmonary Disease (COPD) Psychiatric Medical History: Denies: Depression Past Surgical History Past Surgical History: Reports: Appendectomy, Tubal Ligation Social History Lives with: Family Smoking Status: Current Every Day Smoker Cigarettes Packs Per Day: 1 Number of Years Smokin Last Time Smoked: 01/19/2019 Frequency of Alcohol Use: None Hx Recreational Drug Use: No Drugs: None Hx Prescription Drug Abuse: No - Advance Directive Resuscitation Status: Full Code Family History Family History: Reviewed & Not Pertinent Parental Family History Reviewed: Yes Children Family History Reviewed: Yes Sibling(s) Family History Reviewed.: Yes Medication/Allergy Allergies/Adverse Reactions: magnesium Adverse Reaction (Verified 01/19/19 22:05) nausea pt reported Review of Systems Constitutional: ABSENT: chills, fever(s), headache(s), weight gain, weight loss Eyes: ABSENT: visual disturbances Ears: ABSENT: hearing changes Cardiovascular: ABSENT: chest pain, edema, orthropnea, palpitations Respiratory: PRESENT: cough, dyspnea, sputum. ABSENT: hemoptysis Gastrointestinal: ABSENT: abdominal pain, constipation, diarrhea, hematemesis, hematochezia, nausea, vomiting Genitourinary: ABSENT: dysuria, hematuria Musculoskeletal: ABSENT: joint swelling Integumentary: ABSENT: rash, wounds Neurological: ABSENT: abnormal gait, abnormal speech, confusion, dizziness, focal weakness, syncope Psychiatric: ABSENT: anxiety, depression, homidical ideation, suicidal ideation Endocrine: ABSENT: cold intolerance, heat intolerance, menstrual abnormalities, polydipsia, polyuria Hematologic/Lymphatic: ABSENT: easy bleeding, easy bruising, lymphadenopathy Physical Exam Vital Signs: Temp Pulse Resp BP Pulse Ox 97.9 F 80 16 126/72 H 94 01/20/19 07:28 01/20/19 08:36 01/20/19 08:36 01/20/19 07:28 01/20/19 08:36 Pulse Oximeter Continuous Start: 01/19/19 23:08 Freq: RTQ4 Status: Active Protocol: Document 01/20/19 08:36 J (Rec: 01/20/19 08:42 J [id number]) Pulse Oximetry Assessment Oxygen Saturation (92-100) 94 Oxygen Delivery Method Bi-pap Fraction of Inspired Oxygen (FIO2) 40 Equipment Usage Equipment in Use Continuous SpO2 Machine # 11 Intake & Output 01/19/19 01/20/19 01/21/19 06:59 06:59 06:59 Weight 92.9 kg General appearance: PRESENT: no acute distress, well-developed, well-nourished Head exam: PRESENT: atraumatic, normocephalic Eye exam: PRESENT: conjunctiva pink, EOMI, PERRLA. ABSENT: scleral icterus Ear exam: PRESENT: normal external ear exam Mouth exam: PRESENT: moist, tongue midline Neck exam: PRESENT: full ROM. ABSENT: carotid bruit, JVD, lymphadenopathy, thyr omegaly Respiratory exam: PRESENT: decreased breath sounds, wheezes Cardiovascular exam: PRESENT: RRR. ABSENT: diastolic murmur, rubs, systolic murmur Vascular exam: PRESENT: normal capillary refill GI/Abdominal exam: PRESENT: normal bowel sounds, soft. ABSENT: distended, guarding, mass, organolmegaly, rebound, tenderness Rectal exam: PRESENT: deferred Extremities exam: ABSENT: pedal edema Musculoskeletal exam: PRESENT: ambulatory Neurological exam: PRESENT: alert, awake, oriented to person, oriented to place, oriented to time, oriented to situation, CN II-XII grossly intact. ABSENT: motor sensory deficit Psychiatric exam: PRESENT: appropriate affect, normal mood. ABSENT: homicidal ideation, suicidal ideation Skin exam: PRESENT: dry, intact, warm. ABSENT: cyanosis, rash Results Laboratory Results: 01/20/19 05:44 01/20/19 05:44 01/19/19 01/19/19 01/19/19 21:45 21:45 21:45 WBC 13.0 H RBC 4.54 Hgb 14.1 Hct 40.9 MCV 90 MCH 31.1 MCHC 34.6 RDW 13.6 Plt Count 227 Seg Neutrophils % 75.6 Lymphocytes % 13.7 Monocytes % 7.3 Eosinophils % 3.0 Basophils % 0.4 Absolute Neutrophils 9.9 H Absolute Lymphocytes 1.8 Absolute Monocytes 1.0 Absolute Eosinophils 0.4 Absolute Basophils 0.1 VBG pH 7.36 VBG pCO2 40.8 VBG HCO3 22.6 VBG Base Excess -2.6 Sodium 138.9 Potassium 4.0 Chloride 107 Carbon Dioxide 23 Anion Gap 9 BUN 8 Creatinine 0.64 Est GFR ( Amer) > 60 Est GFR (Non-Af Amer) > 60 Glucose 90 Calcium 9.7 01/20/19 01/20/19 05:44 05:44 WBC 15.2 H RBC 4.24 Hgb 13.0 Hct 38.5 MCV 91 MCH 30.7 MCHC 33.8 RDW 13.6 Plt Count 209 Seg Neutrophils % 92.4 H Lymphocytes % 6.3 L Monocytes % 1.2 L Eosinophils % 0.0 Basophils % 0.1 Absolute Neutrophils 14.0 H Absolute Lymphocytes 1.0 Absolute Monocytes 0.2 Absolute Eosinophils 0.0 Absolute Basophils 0.0 VBG pH VBG pCO2 VBG HCO3 VBG Base Excess Sodium 137.9 Potassium 4.4 Chloride 107 Carbon Dioxide 22 Anion Gap 9 BUN 10 Creatinine 0.60 Est GFR ( Amer) > 60 Est GFR (Non-Af Amer) > 60 Glucose 156 H Calcium 9.4 Impressions: Chest X-Ray 01/19/19 21:35 IMPRESSION: No acute pulmonary findings. Assessment & Plan - Diagnosis (1) Acute respiratory failure with hypoxia Is this a current diagnosis for this admission?: Yes Plan: Currently all improving Continues the BiPAP Consult the pulmonary Get ABG (2) Chronic obstructive pulmonary disease Qualifiers: COPD type: chronic bronchitis Is this a current diagnosis for this admission?: Yes Plan: Continues to nebulizer treatments (3) Smoker Is this a current diagnosis for this admission?: Yes Plan: discuss with the patient about smoking counseling will try the nicotine patch (4) Status asthmaticus Qualifiers: Asthma severity: severe Asthma persistence: persistent Qualified Code(s): J45.52 - Severe persistent asthma with status asthmaticus Is this a current diagnosis for this admission?: Yes Plan: Will continues to IV Solu-Medrol - Time Time Spent: 30 to 50 Minutes Medications reviewed and adjusted accordingly: Yes Anticipated discharge: Home Within: Other - Inpatient Certification Based on my medical assessment, after consideration of the patient's comorbidities, presenting symptoms, or acuity I expect that the services needed warrant INPATIENT care.: Yes I certify that my determination is in accordance with my understanding of Medicare's requirements for reasonable and necessary INPATIENT services [42 CFR 412.3e].: Yes Medical Necessity: Need Close Monitoring Due to Risk of Patient Decompensation, Need For IV Fluids, Need for Nebulizer Therapy and Monitoring of Response, Need for IV Antibiotics Post Hospital Care: D/C Front Office Specialist Documentation - Plan Summary Plan Summary: See MD orders
[2019-01-20] MEDS: BUDESONIDE NEB 0.5 MG/2 ML AMPUL NEB SCH ×2 (11:36→19:47)
[2019-01-20] MEDS: MONTELUKAST SODIUM 10 MG TABLET PO SCH (21:52)
[2019-01-21] MEDS: METHYLPREDNISOLONE INJ 125 MG/2 ML SDV IV SCH ×2 (06:03→17:11)
[2019-01-21] MEDS: IPRATROPIUM/ALBUTEROL 0.5-2.5 MG/3 ML AMPUL NEB SCH ×4 (07:57→21:02)
[2019-01-21] MEDS: BUDESONIDE NEB 0.5 MG/2 ML AMPUL NEB SCH ×2 (07:57→21:02)
[2019-01-21 08:30] LABS: ABSOLUTE LYMPHOCYTES (AUTO) 1.5 10^3/uL (0.5-4.7); ABSOLUTE MONOCYTES (AUTO) 0.7 10^3/uL (0.1-1.4); ABSOLUTE NEUT (AUTO) 15.1 10^3/uL (1.7-8.2); BASOPHILS % (AUTO) 0.1 % (0-2); HEMATOCRIT 35.4 % (36.0-47.0); HEMOGLOBIN 12.1 g/dL (12.0-15.5); LYMPHOCYTES % (AUTO) 8.7 % (13-45); MEAN CORPUSCULAR HEMOGLOBIN 30.7 pg (27.0-33.4); MEAN CORPUSCULAR VOLUME 90 fl (80-97); MONOCYTES % (AUTO) 3.9 % (3-13); PLATELET COUNT 198 10^3/uL (150-450); RED BLOOD COUNT 3.93 10^6/uL (3.72-5.28); RED CELL DISTRIBUTION WIDTH 13.6 % (11.5-14.0); SEGMENTED NEUTROPHILS % (AUTO) 87.3 % (42-78); TOTAL CELLS COUNTED % (AUTO) 100 %; WHITE BLOOD COUNT 17.3 10^3/uL (4.0-10.5)
[2019-01-21 08:34] LABS: ANION GAP 7 (5-19); BLOOD UREA NITROGEN 14 mg/dL (7-20); CARBON DIOXIDE 23 mmol/L (22-30); CHLORIDE 109 mmol/L (98-107); GLUCOSE 144 mg/dL (75-110); POTASSIUM 4.4 mmol/L (3.6-5.0); SODIUM 139.1 mmol/L (137-145)
[2019-01-21] MEDS: FAMOTIDINE 20 MG TABLET PO SCH ×2 (10:01→21:28)
[2019-01-21] MEDS: LEVOFLOXACIN 500 MG/D5W RTU 500 MG/100 ML RTUPB IV SCH (10:01)
[2019-01-21] MEDS: ENOXAPARIN SODIUM INJ 40 MG/0.4 ML DISP.SYRIN SUBCUT SCH (10:01)
--- NOTE | 2019-01-21 10:13 | PDOC PROGRESS REPORT ---
Subjective Progress Note for:: 01/21/19 Subjective:: Patient is feeling much better Patient is denied any chest pain to than any shortness of the breath Patient's desire to go home Reason For Visit: ASTHMA ACUTE Physical Exam Vital Signs: Temp Pulse Resp BP Pulse Ox 97.3 F 62 18 114/61 98 01/21/19 07:26 01/21/19 07:58 01/21/19 07:58 01/21/19 07:26 01/21/19 07:58 Pulse Oximeter Continuous Start: 01/19/19 23:08 Freq: RTQ4 Status: Active Protocol: Document 01/21/19 07:58 JDR (Rec: 01/21/19 08:00 J [id number]) Pulse Oximetry Assessment Oxygen Saturation (92-100) 98 Oxygen Delivery Method Bi-pap Fraction of Inspired Oxygen (FIO2) 30 Equipment Usage Equipment in Use Continuous SpO2 Machine # 11 Intake & Output 01/20/19 01/21/19 01/22/19 06:59 06:59 06:59 Intake Total 1989 Output Total 100 Balance 1889 Weight 92.9 kg 94.4 kg General appearance: PRESENT: no acute distress, well-developed, well-nourished Head exam: PRESENT: atraumatic, normocephalic Eye exam: PRESENT: conjunctiva pink, EOMI, PERRLA. ABSENT: scleral icterus Ear exam: PRESENT: normal external ear exam Mouth exam: PRESENT: moist, tongue midline Neck exam: PRESENT: full ROM. ABSENT: carotid bruit, JVD, lymphadenopathy, thyromegaly Respiratory exam: PRESENT: clear to auscultation mulugeta Cardiovascular exam: PRESENT: RRR. ABSENT: diastolic murmur, rubs, systolic murmur Vascular exam: PRESENT: normal capillary refill GI/Abdominal exam: PRESENT: normal bowel sounds, soft. ABSENT: distended, guarding, mass, organolmegaly, rebound, tenderness Rectal exam: PRESENT: deferred Musculoskeletal exam: PRESENT: ambulatory Neurological exam: PRESENT: alert, awake, oriented to person, oriented to place, oriented to time, oriented to situation, CN II-XII grossly intact. ABSENT: motor sensory deficit Psychiatric exam: PRESENT: appropriate affect, normal mood. ABSENT: homicidal ideation, suicidal ideation Skin exam: PRESENT: dry, intact, warm. ABSENT: cyanosis, rash Results Laboratory Results: 01/21/19 07:44 01/21/19 07:44 01/21/19 01/21/19 07:44 07:44 WBC 17.3 H RBC 3.93 Hgb 12.1 Hct 35.4 L MCV 90 MCH 30.7 MCHC 34.0 RDW 13.6 Plt Count 198 Seg Neutrophils % 87.3 H Lymphocytes % 8.7 L Monocytes % 3.9 Eosinophils % 0.0 Basophils % 0.1 Absolute Neutrophils 15.1 H Absolute Lymphocytes 1.5 Absolute Monocytes 0.7 Absolute Eosinophils 0.0 Absolute Basophils 0.0 Sodium 139.1 Potassium 4.4 Chloride 109 H Carbon Dioxide 23 Anion Gap 7 BUN 14 Creatinine 0.56 Est GFR ( Amer) > 60 Est GFR (Non-Af Amer) > 60 Glucose 144 H Calcium 9.0 Impressions: Chest X-Ray 01/19/19 21:35 IMPRESSION: No acute pulmonary findings. Assessment & Plan - Diagnosis (1) Acute respiratory failure with hypoxia Is this a current diagnosis for this admission?: Yes Plan: Currently all improving We will cut down the IV Solu-Medrol (2) Chronic obstructive pulmonary disease Qualifiers: COPD type: chronic bronchitis Is this a current diagnosis for this admission?: Yes Plan: Continues to nebulizer treatments (3) Smoker Is this a current diagnosis for this admission?: Yes Plan: discuss with the patient about smoking counseling will try the nicotine patch (4) Status asthmaticus Qualifiers: Asthma severity: severe Asthma persistence: persistent Qualified Code(s): J45.52 - Severe persistent asthma with status asthmaticus Is this a current diagnosis for this admission?: Yes Plan: Currently all improving - Time Time Spent with patient: 15-24 minutes Medications reviewed and adjusted accordingly: Yes Anticipated discharge: Home Within: within 24 hours - Plan Summary Plan Summary: Discussed with the patient's patient unable to go home because patient is just off the BiPAP and still in a steroid IV we will discontinue's the BiPAP cut down the IV steroid hopefully tomorrow if the patient remains stable can go home with the p.o. steroid
[2019-01-21] MEDS: MONTELUKAST SODIUM 10 MG TABLET PO SCH (21:28)
[2019-01-22 05:01] LABS: ABSOLUTE LYMPHOCYTES (AUTO) 2.7 10^3/uL (0.5-4.7); ABSOLUTE MONOCYTES (AUTO) 1.1 10^3/uL (0.1-1.4); ABSOLUTE NEUT (AUTO) 12.6 10^3/uL (1.7-8.2); BASOPHILS % (AUTO) 0.1 % (0-2); HEMATOCRIT 33.5 % (36.0-47.0); HEMOGLOBIN 11.5 g/dL (12.0-15.5); LYMPHOCYTES % (AUTO) 16.4 % (13-45); MEAN CORPUSCULAR HEMOGLOBIN 30.9 pg (27.0-33.4); MEAN CORPUSCULAR HGB CONC 34.2 g/dL (32.0-36.0); MEAN CORPUSCULAR VOLUME 90 fl (80-97); MONOCYTES % (AUTO) 6.5 % (3-13); PLATELET COUNT 185 10^3/uL (150-450); RED BLOOD COUNT 3.72 10^6/uL (3.72-5.28); RED CELL DISTRIBUTION WIDTH 13.5 % (11.5-14.0); TOTAL CELLS COUNTED % (AUTO) 100 %; WHITE BLOOD COUNT 16.4 10^3/uL (4.0-10.5)
[2019-01-22 05:29] LABS: ANION GAP 7 (5-19); BLOOD UREA NITROGEN 18 mg/dL (7-20); CALCIUM 8.8 mg/dL (8.4-10.2); CARBON DIOXIDE 24 mmol/L (22-30); CHLORIDE 109 mmol/L (98-107); GLUCOSE 116 mg/dL (75-110); SODIUM 140.2 mmol/L (137-145)
[2019-01-22] MEDS: METHYLPREDNISOLONE INJ 125 MG/2 ML SDV IV SCH ×2 (06:18→17:09)
[2019-01-22] MEDS: IPRATROPIUM/ALBUTEROL 0.5-2.5 MG/3 ML AMPUL NEB SCH ×3 (08:17→15:43)
[2019-01-22] MEDS: BUDESONIDE NEB 0.5 MG/2 ML AMPUL NEB SCH (08:17)
[2019-01-22] MEDS: FAMOTIDINE 20 MG TABLET PO SCH (09:43)
[2019-01-22] MEDS: ENOXAPARIN SODIUM INJ 40 MG/0.4 ML DISP.SYRIN SUBCUT SCH (09:43)
[2019-01-22] MEDS: LEVOFLOXACIN 500 MG/D5W RTU 500 MG/100 ML RTUPB IV SCH (09:43)
[2019-01-22 18:51] VITALS: BP 119/72
--- NOTE | 2019-01-22 19:52 | PDOC DISCHARGE SUMMARY ---
General - Admit/Disc Date/PCP Admission Date/Primary Care Provider: 01/19/19 22:44 Discharge Date: 01/22/19 - Additional Information Resuscitation Status: Full Code Discharge Diet: As Tolerated Discharge Activity: Activity As Tolerated, Balance Activity w/Rest Prescriptions: Budesonide/Formoterol Fumarate [Symbicort Hfa 160-4.5 Mcg Inhaler 6 gm] 1 puff IH Q12 #1 inhaler Prednisone [Juan M] 40 mg PO DAILY #5 tablet. Home Medications: Albuterol Sulfate [Ventolin 0.083% Neb 2.5 mg/3 ml Ampul] 1 vial NEB Q4 01/20/19 Budesonide/Formoterol Fumarate [Symbicort Hfa 160-4.5 Mcg Inhaler 6 gm] 1 puff IH Q12 #1 inhaler 01/22/19 Prednisone [Juan M] 40 mg PO DAILY #5 tablet. 01/22/19 History of Present Illness History of Present Illness: SHANNAN ROLLINS is a 48 year old female, She has a history of very severe persistent asthma poorly compliant, she came to the emergency room for evaluation of acute asthma attack Hospital Course Hospital Course: She was admitted for the management of acute asthma exacerbation, She was treated with intravenous Solu-Medrol, bronchodilators, I saw her today on the floor she is much improved there is no audible wheeze the lung is clear she wants to go home Physical Exam Vital Signs: Temp Pulse Resp BP Pulse Ox 97.7 F 52 L 18 119/72 97 01/22/19 18:50 01/22/19 18:50 01/22/19 18:50 01/22/19 18:50 01/22/19 18:50 Pulse Oximeter Continuous Start: 01/19/19 23:08 Freq: RTQ4 Status: Discharge Protocol: Document 01/22/19 15:46 J (Rec: 01/22/19 15:54 CHEY [id number]) Pulse Oximetry Assessment Oxygen Saturation (92-100) 97 Oxygen Delivery Method Room Air Fraction of Inspired Oxygen (FIO2) 21 Equipment Usage Equipment in Use Continuous SpO2 Machine # 11 Intake & Output 01/21/19 01/22/19 01/23/19 06:59 06:59 06:59 Intake Total 1988 3460 100 Output Total 100 0 Balance 1889 3460 100 Weight 94.4 kg 95 kg General appearance: PRESENT: no acute distress, well-developed, well-nourished Head exam: PRESENT: atraumatic, normocephalic Eye exam: PRESENT: conjunctiva pink, EOMI, PERRLA Ear exam: PRESENT: normal external ear exam Mouth exam: PRESENT: moist, tongue midline Neck exam: PRESENT: full ROM Respiratory exam: PRESENT: clear to auscultation mulugeta Cardiovascular exam: PRESENT: RRR, +S1, +S2 Pulses: PRESENT: normal dorsalis pedis pul, +2 pedal pulses bilateral Vascular exam: PRESENT: normal capillary refill GI/Abdominal exam: PRESENT: normal bowel sounds, soft Rectal exam: PRESENT: deferred Neurological exam: PRESENT: alert, awake, oriented to person, oriented to place, oriented to time, oriented to situation, CN II-XII grossly intact Psychiatric exam: PRESENT: appropriate affect, normal mood Skin exam: PRESENT: dry, intact, warm Results Laboratory Results: 01/22/19 04:09 01/22/19 04:09 01/22/19 01/22/19 04:09 04:09 WBC 16.4 H RBC 3.72 Hgb 11.5 L Hct 33.5 L MCV 90 MCH 30.9 MCHC 34.2 RDW 13.5 Plt Count 185 Seg Neutrophils % 77.0 Lymphocytes % 16.4 Monocytes % 6.5 Eosinophils % 0.0 Basophils % 0.1 Absolute Neutrophils 12.6 H Absolute Lymphocytes 2.7 Absolute Monocytes 1.1 Absolute Eosinophils 0.0 Absolute Basophils 0.0 Sodium 140.2 Potassium 4.0 Chloride 109 H Carbon Dioxide 24 Anion Gap 7 BUN 18 Creatinine 0.70 Est GFR ( Amer) > 60 Est GFR (Non-Af Amer) > 60 Glucose 116 H Calcium 8.8 Impressions: Chest X-Ray 01/19/19 21:35 IMPRESSION: No acute pulmonary findings. Qualifiers - * PATIENT BEING DISCHARGED WITH ANY OF THE FOLLOWING DIAGNOSIS: No
== END 2019-01-22 19:15 | disposition home or self-care (01) | DRG 189 ==
LOC: ER 21:27 → EH 22:44 → 3N 01-20 00:16
PROVIDERS: ADMIT Internal Medicine; ATTEND Internal Medicine
DX: J96.01 Acute respiratory failure with hypoxia (principal); J45.52 Severe persistent asthma with status asthmaticus; J44.9 Chronic obstructive pulmonary disease, unspecified; F41.9 Anxiety disorder, unspecified; F40.240 Claustrophobia; F17.210 Nicotine dependence, cigarettes, uncomplicated; Z91.19 Patient's noncompliance with other medical treatment and regimen
CPT/HCPCS: 36415; 71045; 80048; 82803; 85025; 87040; 94640; 94660; 94762; 96374; 99291; J1650; J1956; J2060; J2405; J2930; J7030; J7620

== ENCOUNTER 2019-02-19 18:42 | Emergency (ER) | payer SELFPAY ==
[2019-02-19] MEDS ORDERED: METHYLPREDNISOLONE INJ 125 MG/2 ML SDV IV ONE (19:06)
[2019-02-19] MEDS ORDERED: IPRATROPIUM/ALBUTEROL 0.5-2.5 MG/3 ML AMPUL NEB ONE ×3 (19:07→20:26)
[2019-02-19] MEDS: ALBUTEROL SULFATE 0.083% NEB 2.5 MG/3 ML AMPUL NEB SCH ×2 (19:10→19:30)
--- NOTE | 2019-02-19 19:11 | ER Document Report ---
ED Medical Screen (RME) - General Chief Complaint: Cough Stated Complaint: DIFFICULTY BREATHING Time Seen by Provider: 02/19/19 19:06 Mode of Arrival: Ambulatory Information source: Patient Notes: 48-year-old female presented to ED for shortness of breath COPD asthma. She states she has not recovered since she was discharged from the ICU about a month ago. She states she has been short of breath and having a hard time breathing since then. Patient is alert oriented lungs are very tight with rales and rhonchi. She states she smokes a pack a day but is not able to smoke today. I have informed her how dangerous it is for her to smoke at all with her diagnoses. Patient has a history of a appendectomy uterine ablation and a bilateral tubal ligation. I have greeted and performed a rapid initial assessment of this patient. A comprehensive ED assessment and evaluation of the patient, analysis of test results and completion of medical decision making process will be conducted by an additional ED providers. Dictation of this chart was performed using voice recognition software; therefore, there may be some unintended grammatical errors. TRAVEL OUTSIDE OF THE [place] IN LAST 30 DAYS: No - Related Data Allergies/Adverse Reactions: magnesium Adverse Reaction (Verified 02/19/19 18:47) nausea pt reported Past Medical History - Social History Frequency of alcohol use: None Drug Abuse: None Family history: Reviewed & Not Pertinent Pulmonary Medical History: Reports: Hx Asthma, Hx COPD Renal/ Medical History: Denies: Hx Peritoneal Dialysis Psychiatric Medical History: Denies: Hx Depression Traumatic Medical History: Reports: Hx Fractures Past Surgical History: Reports: Hx Appendectomy, Hx Gynecologic Surgery - uterine ablation, Hx Tubal Ligation - Immunizations Hx Diphtheria, Pertussis, Tetanus Vaccination: Yes - unknown Physical Exam - Vital signs Vitals: Temp Pulse Resp BP Pulse Ox 99.1 F 105 H 26 H 127/69 H 88 L 02/19/19 18:50 02/19/19 18:50 02/19/19 18:50 02/19/19 18:50 02/19/19 18:50 Course - Vital Signs Vital signs: Temp Pulse Resp BP Pulse Ox 99.1 F 105 H 26 H 127/69 H 88 L 02/19/19 18:50 02/19/19 18:50 02/19/19 18:50 02/19/19 18:50 02/19/19 18:50
[2019-02-19 19:43] LABS: ABSOLUTE BASOPHILS # (AUTO) 0.1 10^3/uL (0.0-0.2); ABSOLUTE EOSINOPHILS # (AUTO) 0.3 10^3/uL (0.0-0.6); ABSOLUTE LYMPHOCYTES (AUTO) 2.8 10^3/uL (0.5-4.7); ABSOLUTE MONOCYTES (AUTO) 1.1 10^3/uL (0.1-1.4); ABSOLUTE NEUT (AUTO) 8.6 10^3/uL (1.7-8.2); BASOPHILS % (AUTO) 0.5 % (0-2); EOSINOPHILS % (AUTO) 2.6 % (0-6); HEMOGLOBIN 14.1 g/dL (12.0-15.5); LYMPHOCYTES % (AUTO) 21.9 % (13-45); MEAN CORPUSCULAR HEMOGLOBIN 30.5 pg (27.0-33.4); MEAN CORPUSCULAR HGB CONC 33.6 g/dL (32.0-36.0); MEAN CORPUSCULAR VOLUME 91 fl (80-97); MONOCYTES % (AUTO) 8.2 % (3-13); PLATELET COUNT 209 10^3/uL (150-450); RED BLOOD COUNT 4.63 10^6/uL (3.72-5.28); RED CELL DISTRIBUTION WIDTH 13.5 % (11.5-14.0); SEGMENTED NEUTROPHILS % (AUTO) 66.8 % (42-78); TOTAL CELLS COUNTED % (AUTO) 100 %; WHITE BLOOD COUNT 12.9 10^3/uL (4.0-10.5)
[2019-02-19 19:56] LABS: ALANINE AMINOTRANSFERASE 24 U/L (9-52); ALBUMIN 4.1 g/dL (3.5-5.0); ALKALINE PHOSPHATASE 82 U/L (38-126); ANION GAP 9 (5-19); ASPARTATE AMINO TRANSFERASE 18 U/L (14-36); BILIRUBIN,DIRECT 0.2 mg/dL (0.0-0.4); BILIRUBIN,TOTAL 1.3 mg/dL (0.2-1.3); BLOOD UREA NITROGEN 13 mg/dL (7-20); CALCIUM 9.6 mg/dL (8.4-10.2); CARBON DIOXIDE 24 mmol/L (22-30); CHLORIDE 108 mmol/L (98-107); GLUCOSE 92 mg/dL (75-110); SODIUM 141.1 mmol/L (137-145); TOTAL PROTEIN 7.3 g/dL (6.3-8.2)
--- NOTE | 2019-02-19 20:30 | ER Document Report ---
ED Respiratory Problem - General Chief Complaint: Cough Stated Complaint: DIFFICULTY BREATHING Time Seen by Provider: 02/19/19 19:06 Mode of Arrival: Ambulatory Notes: Patient is a 48-year-old female with a history of asthma and tobacco abuse that comes to the emergency department for chief complaint of difficulty breathing, worse since yesterday but with wheezing. She denies fever/chills. She has a nonproductive cough. She was admitted 1 month ago for asthma exacerbation as well. She states that she was supposed to be on steroids but she went to the pharmacy and they were unable to fill it reportedly. She states her albuterol inhaler is not working. She denies any other medical history or daily medicatio ns. She states she was intubated once for asthma as a child, she had bad asthma as a child, she states she has had little trouble with asthma as an adult until recently.. TRAVEL OUTSIDE OF THE [place] IN LAST 30 DAYS: No - Related Data Allergies/Adverse Reactions: magnesium Adverse Reaction (Verified 02/19/19 18:47) nausea pt reported Past Medical History - General Information source: Patient - Social History Smoking Status: Current Every Day Smoker Frequency of alcohol use: None Drug Abuse: None Family History: Reviewed & Not Pertinent Patient has suicidal ideation: No Patient has homicidal ideation: No Pulmonary Medical History: Reports: Hx Asthma, Hx COPD Renal/ Medical History: Denies: Hx Peritoneal Dialysis Psychiatric Medical History: Denies: Hx Depression Traumatic Medical History: Reports: Hx Fractures Past Surgical History: Reports: Hx Appendectomy, Hx Gynecologic Surgery - uterine ablation, Hx Tubal Ligation - Immunizations Hx Diphtheria, Pertussis, Tetanus Vaccination: Yes - unknown Physical Exam - Vital signs Vitals: Temp Pulse Resp BP Pulse Ox 99.1 F 105 H 26 H 127/69 H 88 L 02/19/19 18:50 02/19/19 18:50 02/19/19 18:50 02/19/19 18:50 02/19/19 18:50 - Notes Notes: GENERAL: Alert, interacts well. No acute distress. HEAD: Normocephalic, atraumatic. EYES: Pupils equal, round, and reactive to light. Extraocular movements intact. ENT: Oral mucosa moist, tongue midline. Oropharynx unremarkable. Airway patent. NECK: Full range of motion. Supple. Trachea midline. LUNGS: Expiratory wheezes throughout, few scattered rhonchi. No tachypnea. No signs of distress. HEART: Regular rate and rhythm. No murmur ABDOMEN: Soft, non-tender. Non-distended. Bowel sounds present in all 4 quadrants. GENITOURINARY: Deferred EXTREMITIES: Moves all 4 extremities spontaneously. No edema, normal radial and dorsalis pedis pulses bilaterally. No cyanosis. BACK: no cervical, thoracic, lumbar midline tenderness. No saddle anesthesia, normal distal neurovascular exam. NEUROLOGICAL: Alert and oriented x3. Normal speech. . PSYCH: Normal affect, normal mood. SKIN: Warm, dry, normal turgor. No rashes or lesions noted. Course - Re-evaluation Re-evalutation: Patient with 88% oxygen on room air initially, on my initial eval he has a lot of expiratory wheezes, few scattered rhonchi, coarse cough. However she speaks in full sentences, does not have labored breathing or distress. Chest x-ray unremarkable. CBC, chemistry blood gas unremarkable except for mild elevation of neutrophils of leukocytes. No fever. On reevaluation patient is much improved, lungs almost clear, patient is requesting to leave. She still has borderline hypoxia however, because of this with recurrent asthma exacerbations recently I recommended admission to the hospital. Patient declines, request to go home. She did agree to ambulate with pulse oxygen monitoring, she did perform this reasonably well although at the end she did desaturate down to 88%. I again recommended admission but patient declined. She requests prednisone prescription, she states she will follow-up with primary care and return if she worsens in any way. She is not in any distress on my reevaluation's. Discharged with return precautions. - Vital Signs Vital signs: Temp Pulse Resp BP Pulse Ox 98.5 F 74 18 104/66 95 02/19/19 22:43 02/19/19 22:43 02/19/19 22:43 02/19/19 22:43 02/19/19 22:43 - Laboratory Result Diagrams: 02/19/19 19:25 02/19/19 19:25 Laboratory results interpreted by me: 02/19/19 02/19/19 19:25 19:25 WBC 12.9 H Absolute Neutrophils 8.6 H Chloride 108 H Discharge - Discharge Clinical Impression: Shortness of breath, Wheezing Asthma exacerbation Qualifiers: Asthma severity: moderate Asthma persistence: persistent Qualified Code(s): J45.41 - Moderate persistent asthma with (acute) exacerbation Condition: Stable Disposition: HOME, SELF-CARE Additional Instructions: Take your prednisone, take your albuterol, follow-up closely with your primary care provider. Stop smoking. Return if you worsen in any way including difficulty breathing, fever, or any other concerning symptoms. Prescriptions: Prednisone [Deltasone 20 mg Tablet] 3 tab PO DAILY 5 Days #15 tablet Forms: Return to Work
--- NOTE | 2019-02-19 20:37 | RADIOLOGY REPORT (SQ) ---
EXAM DESCRIPTION: XR CHEST 1 VIEW COMPLETED DATE/TME: 02/19/2019 19:07 CLINICAL HISTORY: 48 years Female cough congestion copd COMPARISON: 01/19/2019. FINDINGS: The cardiomediastinal silhouette appears unremarkable. No consolidating infiltrates or pleural effusions. No pneumothorax. IMPRESSION: No acute abnormality is identified.
[2019-02-19 20:52] LABS: VENOUS BLOOD BASE EXCESS -0.4 mmol/L; VENOUS BLOOD HCO3 25.6 mmol/L (20-32); VENOUS BLOOD PCO2 47.2 mmHg (35-63); VENOUS BLOOD PH 7.35 (7.30-7.42)
[2019-02-19 22:44] VITALS: BP 104/66
== END 2019-02-19 22:49 | disposition home or self-care (01) ==
LOC: ER 18:42
DX: J45.41 Moderate persistent asthma with (acute) exacerbation (principal); T38.0X6A Underdosing of glucocorticoids and synthetic analogues, initial encounter; Z91.128 Patient's intentional underdosing of medication regimen for other reason; Z91.14 Patient's other noncompliance with medication regimen; J44.9 Chronic obstructive pulmonary disease, unspecified; R06.02 Shortness of breath; R05 Cough; F17.200 Nicotine dependence, unspecified, uncomplicated
CPT/HCPCS: 94640 ×2; 99283; 96374; 36415; 85025; 80053; 82803; 71045; J2930; J7620

== ENCOUNTER 2019-08-12 19:27 | Emergency (ER) | payer SELFPAY ==
[2019-08-12] MEDS ORDERED: IPRATROPIUM/ALBUTEROL 0.5-2.5 MG/3 ML AMPUL NEB ONE ×2 (19:31→23:08)
[2019-08-12] MEDS ORDERED: METHYLPREDNISOLONE INJ 125 MG/2 ML SDV IM ONE (19:32)
[2019-08-12] MEDS ORDERED: ALBUTEROL SULFATE 0.083% NEB 2.5 MG/3 ML AMPUL NEB ONE (19:34)
--- NOTE | 2019-08-12 19:38 | ER Document Report ---
ED Medical Screen (RME) - General Chief Complaint: Breathing Difficulty Stated Complaint: DIFFICULTY BREATHING Time Seen by Provider: 08/12/19 19:30 Mode of Arrival: Wheelchair Information source: Patient Notes: 49-year-old female presents to ED for very severe shortness of breath wheezing exacerbation of COPD and asthma. She states she does smoke a pack a day. She states she does not have any other medical history but she just cannot breathe at this time. She states she tried to use her albuterol at work and it did not help. I have greeted and performed a rapid initial assessment of this patient. A comprehensive ED assessment and evaluation of the patient, analysis of test results and completion of medical decision making process will be conducted by an additional ED providers. TRAVEL OUTSIDE OF THE [place] IN LAST 30 DAYS: No - Related Data Allergies/Adverse Reactions: magnesium Adverse Reaction (Verified 02/19/19 18:47) nausea pt reported Past Medical History - Social History Family history: Reviewed & Not Pertinent Pulmonary Medical History: Reports: Hx Asthma, Hx COPD Renal/ Medical History: Denies: Hx Peritoneal Dialysis Psychiatric Medical History: Denies: Hx Depression Traumatic Medical History: Reports: Hx Fractures Past Surgical History: Reports: Hx Appendectomy, Hx Gynecologic Surgery - uteri ne ablation, Hx Tubal Ligation - Immunizations Hx Diphtheria, Pertussis, Tetanus Vaccination: Yes - unknown
[2019-08-12] MEDS: ALBUTEROL SULFATE 0.083% NEB 2.5 MG/3 ML AMPUL NEB SCH ×2 (19:59)
--- NOTE | 2019-08-12 20:03 | ER Document Report ---
ED Respiratory Problem - General Chief Complaint: Breathing Difficulty Stated Complaint: DIFFICULTY BREATHING Time Seen by Provider: 08/12/19 19:30 Primary Care Provider: [facility] [Provider Group] - Follow up tomorrow NARGIS LOGAN MD [ACTIVE STAFF] - Follow up tomorrow Mode of Arrival: Wheelchair Notes: Patient is a 49-year-old female who presents the emergency department with a chief complaint of shortness of breath. Patient has COPD and asthma. Patient smokes a pack a day. Patient states that she is also supposed to be taking Singulair and is supposed to be on inhaled corticosteroids, but she ran out of her Singulair and the corticosteroids are too expensive for her. Patient states that her symptoms started all of a sudden today when she was doing a clients here, as she is a hairdresser. Patient not sure if it was a perfume or hair that had triggered her asthma. Patient also does not have a rescue inhaler, she only has nebulizer. Patient is a hayden and when she was patient had a breathing treatment at home and did not have any relief. TRAVEL OUTSIDE OF THE [place] IN LAST 30 DAYS: No - Related Data Allergies/Adverse Reactions: magnesium Adverse Reaction (Verified 02/19/19 18:47) nausea pt reported Home Medications: albuterol Past Medical History - General Information source: Patient - Social History Smoking Status: Current Every Day Smoker Family History: Reviewed & Not Pertinent Patient has suicidal ideation: No Patient has homicidal ideation: No Pulmonary Medical History: Reports: Hx Asthma, Hx COPD Renal/ Medical History: Denies: Hx Peritoneal Dialysis Psychiatric Medical History: Denies: Hx Depression Traumatic Medical History: Reports: Hx Fractures Past Surgical History: Reports: Hx Appendectomy, Hx Gynecologic Surgery - uterin e ablation, Hx Tubal Ligation - Immunizations Hx Diphtheria, Pertussis, Tetanus Vaccination: Yes - unknown Review of Systems - Review of Systems Notes: REVIEW OF SYSTEMS: CONSTITUTIONAL : Denies recent illness. Denies recent unintentional weight loss. Denies fever, chills, or sweats. EENT: Denies eye, ear, throat, or mouth pain, discharge, or symptoms. Denies nasal or sinus congestion. CARDIOVASCULAR: Denies chest pain. RESPIRATORY: See HPI. GASTROINTESTINAL: Denies nausea, vomiting, and diarrhea. Denies abdominal pain. Denies constipation. GENITOURINARY: Denies difficulty urinating, burning, blood in urine, urgency or frequency. MUSCULOSKELETAL: Denies neck and back pain. Denies joint pain or swelling. SKIN: Denies rash, itchiness, or lesions HEMATOLOGIC : Denies easy bruising or bleeding. LYMPHATIC: Denies swollen, painful, enlarged glands. NEUROLOGICAL: Denies no numbness or tingling denies weakness. Denies headache. Denies altered mental status. Denies alteration in speech. PSYCHIATRIC: Denies stress, anxiety, alteration in sleep patterns, or depre ssion. All other systems reviewed and negative. Physical Exam - Vital signs Vitals: Pulse Resp Pulse Ox 103 H 28 H 92 08/12/19 19:37 08/12/19 19:37 08/12/19 19:37 - Notes Notes: PHYSICAL EXAMINATION: GENERAL: Appears well, healthy, well-nourished, no acute distress. HEAD: Normocephalic, atraumatic. EYES: PERRL, conjunctiva normal, all extraocular movements intact, sclera nonicteric ENT: Moist mucous membranes. NECK: Supple, no noticeable swelling, redness, rash. Normal range of motion. LUNGS: Expiratory wheezes noted throughout. CARDIOVASCULAR: S1-S2, regular rate, regular rhythm. Radial pulses 2+, normal. ABDOMEN: Normoactive bowel sounds. Soft, nontender, no guarding, no rebound tenderness, and no masses palpated. EXTREMITIES: Normal strength and range of motion, no pitting or edema. No cyanosis. NEUROLOGICAL: Moves all extremities upon command. Strength 5/5 in all extremities. PSYCH: Normal mood, normal affect. SKIN: Warm, dry. No rash, lesions, ulcerations noted. Normal skin turgor. Course - Re-evaluation Re-evalutation: 08/12/19 20:50 I reevaluated the patient after her DuoNeb treatments. She continues to have expiratory wheezes. She will be monitored. 08/12/19 21:20 Patient states that she would like a dose of Singulair, because she has been off the Singulair for a while. Chest x-ray is unremarkable. Hematology is normal. Her blood gases normal also. No acidosis or alkalosis noted. Patient's chemistries are unremarkable. 08/12/19 23:48 I have offered the patient admission and she states that she really does not want to be admitted and she wants to go home. I went over the risks for leaving. She verbalized understanding. I complained to her that it is imperative that she uses her albuterol treatments [id number]. I will give her another DuoNeb treatment to help her. Patient is requesting to have her Singulair refilled and to be able to have an albuterol inhaler, as she only has albuterol nebulizers at home. She states that she would like to have the inhaler when she has at work. I will write the patient Singulair and an albuterol inhaler. - Vital Signs Vital signs: Temp Pulse Resp BP Pulse Ox 98.7 F 103 H 16 115/75 97 08/13/19 00:08 08/12/19 19:37 08/13/19 00:00 08/13/19 00:00 08/13/19 00:00 - Laboratory Result Diagrams: 08/12/19 19:50 08/12/19 19:50 Laboratory results interpreted by me: 08/12/19 19:50 Chloride 109 H Discharge - Discharge Clinical Impression: Smoker Asthma exacerbation Qualifiers: Asthma severity: severe Asthma persistence: persistent Qualified Code(s): J45.51 - Severe persistent asthma with (acute) exacerbation Condition: Stable Disposition: HOME, SELF-CARE Additional Instructions: You are seen today in the emergency department for shortness of breath. You had an asthma exacerbation. You are being sent home with a prescription for Singulair and an albuterol inhaler. Your labs and x-ray are normal. Please continue your albuterol nebulizer treatments at home every 4 hours around-the- clock for the next 2 to 3 days. You are also being sent home with an albuterol inhaler. Please use the spacer. Please return immediately if you have any symptoms. Please follow-up with your primary care provider tomorrow in regards to this visit. Prescriptions: Montelukast Sodium [Singulair 10 mg Tablet] 10 mg PO QHS #30 tablet Prednisone [Deltasone 20 mg Tablet] 3 tab PO DAILY 5 Days #15 tablet Forms: Smoking Cessation Education Referrals: NARGIS LOGAN MD [ACTIVE STAFF] - Follow up tomorrow [facility] [Provider Group] - Follow up tomorrow
[2019-08-12 20:15] LABS: ABSOLUTE BASOPHILS # (AUTO) 0.1 10^3/uL (0.0-0.2); ABSOLUTE EOSINOPHILS # (AUTO) 0.4 10^3/uL (0.0-0.6); ABSOLUTE LYMPHOCYTES (AUTO) 3.1 10^3/uL (0.5-4.7); ABSOLUTE MONOCYTES (AUTO) 0.6 10^3/uL (0.1-1.4); ABSOLUTE NEUT (AUTO) 3.7 10^3/uL (1.7-8.2); EOSINOPHILS % (AUTO) 4.7 % (0-6); HEMATOCRIT 40.4 % (36.0-47.0); HEMOGLOBIN 14.1 g/dL (12.0-15.5); LYMPHOCYTES % (AUTO) 39.6 % (13-45); MEAN CORPUSCULAR HEMOGLOBIN 31.4 pg (27.0-33.4); MEAN CORPUSCULAR HGB CONC 34.9 g/dL (32.0-36.0); MEAN CORPUSCULAR VOLUME 90 fl (80-97); MONOCYTES % (AUTO) 7.9 % (3-13); PLATELET COUNT 204 10^3/uL (150-450); RED CELL DISTRIBUTION WIDTH 13.5 % (11.5-14.0); SEGMENTED NEUTROPHILS % (AUTO) 46.8 % (42-78); TOTAL CELLS COUNTED % (AUTO) 100 %; WHITE BLOOD COUNT 7.9 10^3/uL (4.0-10.5)
[2019-08-12 20:36] LABS: ALBUMIN 4.2 g/dL (3.5-5.0); ALKALINE PHOSPHATASE 75 U/L (38-126); ANION GAP 10 (5-19); ASPARTATE AMINO TRANSFERASE 22 U/L (14-36); BILIRUBIN,DIRECT 0.2 mg/dL (0.0-0.4); BILIRUBIN,TOTAL 0.4 mg/dL (0.2-1.3); BLOOD UREA NITROGEN 10 mg/dL (7-20); CALCIUM 9.9 mg/dL (8.4-10.2); CARBON DIOXIDE 22 mmol/L (22-30); CHLORIDE 109 mmol/L (98-107); GLUCOSE 91 mg/dL (75-110); POTASSIUM 4.1 mmol/L (3.6-5.0); TOTAL PROTEIN 7.2 g/dL (6.3-8.2)
[2019-08-12] MEDS ORDERED: MONTELUKAST SODIUM 10 MG TABLET PO ONE (20:49)
[2019-08-12 20:52] LABS: VENOUS BLOOD BASE EXCESS 0.6 mmol/L; VENOUS BLOOD HCO3 26.6 mmol/L (20-32); VENOUS BLOOD PCO2 47.6 mmHg (35-63); VENOUS BLOOD PH 7.37 (7.30-7.42)
[2019-08-12] MEDS ORDERED: CETIRIZINE 10 MG TABLET PO ONE (20:52)
--- NOTE | 2019-08-12 21:01 | RADIOLOGY REPORT (SQ) ---
EXAM DESCRIPTION: CLINICAL HISTORY: 49 years Female cough short of breath hx copd COMPARISON: 12/22/2018 FINDINGS: The cardiomediastinal silhouette appears unremarkable. No consolidating infiltrates or pleural effusions. No pneumothorax. IMPRESSION: No acute abnormality is identified.
[2019-08-12] MEDS ORDERED: ALBUTEROL SULFATE HFA (90 MCG/PUFF) 8 GM MDI (1 MDI/ER DISP) IH PRN (23:49)
[2019-08-13 00:02] VITALS: BP 115/75
--- NOTE | 2019-08-13 06:14 | EKG REPORT ---
SEVERITY:- NORMAL ECG - SINUS RHYTHM : Confirmed by: Jesús Mcmillan MD 13-Aug-2019 06:13:53
== END 2019-08-13 00:15 | disposition home or self-care (01) ==
LOC: ER 19:27
DX: J45.51 Severe persistent asthma with (acute) exacerbation (principal); F17.200 Nicotine dependence, unspecified, uncomplicated
CPT/HCPCS: 93005; 36415; 85025; 80053; 82803; 71046; 93010; J2930; J3490; J7620; 94640; 96374; 99285